=== PATIENT | male | born 1955 | race Caucasian/White ===

== ENCOUNTER 2023-12-20 05:01 | Inpatient (IN) | payer MEDICARE, OTHER, SELFPAY ==
[2023-12-10 08:44] VITALS: BMI 26.7
[2023-12-10 09:36] LABS: Urine Albumin Negative (Neg - Trace); Urine Bilirubin Negative (Negative); Urine Character Clear (Clear); Urine Color Yellow; Urine Glucose Negative (Negative); Urine Ketone Negative (Negative); Urine Leukocyte Negative (Negative); Urine Nitrite Negative (Negative); Urine Occult Blood Negative (Negative); Urine Specific Gravity 1.015 (<1.030); Urine Urobilinogen Negative (Neg - 1+)
[2023-12-10 09:38] LABS: INR 1.03; PT 13.7 Sec (11.4-14.6)
[2023-12-10 09:39] LABS: APTT 29.1 Sec (23.4-35.0)
[2023-12-10 09:40] LABS: % Basophils 1.2 % (0-2); % Eosinophils 2.7 % (0-6); % Immature Granulocytes 0.3 % (0-0.5); % Lymphocytes 19.7 % (20.5-51.1); % Monocytes 9.1 % (1.7-9.3); Absolute Basophils 0.1 10^3/uL (0-0.2); Absolute Eosinophils 0.2 10^3/uL (0-0.7); Absolute Lymphocytes 1.3 10^3/uL (1.2-3.4); Absolute Monocytes 0.6 10^3/uL (0.1-0.6); Absolute Neutrophils 4.5 10^3/uL (1.4-6.5); Hematocrit 42.4 % (39.0-52.0); Hemoglobin 14.7 g/dL (13.0-18.0); Mean Corp Hgb Conc. 34.7 g/dL (33.0-37.0); Mean Corpuscular Hgb 31.4 pg (27.0-31.0); Mean Corpuscular Volume 90.6 fL (80.0-94.0); Mean Platelet Volume 10.4 fL (7.4-10.4); Nucleated Red Blood Cells % 0 % (-); Platelet Count 187 10^3/uL (130-400); Red Blood Cell Count 4.68 10^6/uL (4.70-6.10); Red Cell Dist. Width 12.6 % (11.5-14.5); White Blood Cell Count 6.7 10^3/uL (4.8-10.8)
[2023-12-10 09:55] LABS: ALT (SGPT) 28 U/L (0-50); AST (SGOT) 29 U/L (17-59); Albumin 4.4 g/dl (3.5-5.0); Alkaline Phosphatase 70 U/L (38-126); Blood Urea Nitrogen 15 mg/dl (9-20); Calcium 9.4 mg/dl (8.4-10.2); Carbon Dioxide 29 mmol/L (22-30); Chloride 105 mmol/L (98-107); Direct Bilirubin 0.5 mg/dl (0.0-0.4); Estimated Creatinine Clearance 93 ml/min; Glucose 120 mg/dl (70-99); Potassium 4.2 mmol/L (3.5-5.1); Sodium 138 mmol/L (135-145); Total Bilirubin 0.8 mg/dl (0.2-1.3); Total Protein 7.1 g/dl (6.3-8.2); eGFR > 60.00
[2023-12-10 11:14] LABS: Glycohemoglobin (HgbA1c) 5.7 % (4.0-5.6)
--- NOTE | 2023-12-10 11:36 | CM ---
spoke to pt in PAT's we discussed preop AVR/CABG surgery including sternal and driving instructions. he is prev indep, lives with his in an in-law suite onthe first floor with 2 steps to enter. he lives in [place] now but when visiting
he stays with his son. all of his MD's remain here in the area. he denies any dme's. he is agreeable to a f/u visit from the CT RN after dc. cm role explained and all questions answered. plan is for AVR/CABG on 12/20/23, cm to follow.
[2023-12-19 23:15] VITALS: BMI 26.7
[2023-12-20] VITALS (17 sets, daily range): BP systolic 94–154; BP diastolic 51–70; BMI 26.7; BMI 25.6
[2023-12-20] MEDS: BACTROBAN 2% OINTMENT 1 APPLIC NASAL ×2 (05:22→20:21)
[2023-12-20] MEDS: PROTONIX 40 MG PO (05:23)
[2023-12-20] MEDS: MAGNESIUM OXIDE 500 MG PO (05:23)
[2023-12-20] MEDS: LOPRESSOR 25 MG PO (05:23)
--- NOTE | 2023-12-20 05:36 | PTCARENOTE ---
received pt into room 2265. pt confirmed 2 showers at home. pt clipped and prepped for CABG/AVR. wiped w/ CHG wipes. pre-op education provided. pre-op meds given. all questions answered.
--- NOTE | 2023-12-20 05:55 | W.CVOR.SURPR ---
CVOR Surgeon Immed Pre Op
-
I have examined this patient prior to performance of the scheduled procedure.
The patient's condition is unchanged from the time of the dictated/written History and
Physical and the patient is able to undergo the scheduled procedure.
CABG + AVR (Biological)
[2023-12-20 07:52] LABS: ACT+ - POC 87 Seconds (82-134)
[2023-12-20 07:57] LABS: B.E. - POC -3.9 mmol/L; Glucose - POC 123 mg/dl (65-99); HCO3 - POC 21 mmol/L (21-29); Hematocrit - POC 36 % PCV (42-52); Hemodilution- POC No; Hemoglobin Calculated - POC 12.1; O2 Saturation %Calculated-POC 99.8 5 (92-96); PCO2 - POC 38 mmHg (35-45); PO2 - POC 232 mmHg (80-100); Potassium - POC 3.9 mmol/L (3.6-5.0); Sodium - POC 142 mmol/L (135-145); pH - POC 7.35 (7.35-7.45)
[2023-12-20 08:01] LABS: Urine Albumin Negative (Neg - Trace); Urine Bilirubin Negative (Negative); Urine Character Clear (Clear); Urine Color Yellow; Urine Glucose Negative (Negative); Urine Ketone Negative (Negative); Urine Leukocyte Negative (Negative); Urine Nitrite Negative (Negative); Urine Occult Blood Negative (Negative); Urine Urobilinogen Negative (Neg - 1+)
[2023-12-20 09:37] LABS: Glucose - POC 163 mg/dl (65-99); HCO3 - POC 25 mmol/L (21-29); Hematocrit - POC 35 % PCV (42-52); Hemodilution- POC Yes; Hemoglobin Calculated - POC 11.9; Ionized Calcium - POC 1.06 mmol/L (1.12-1.27); O2 Saturation %Calculated-POC 99.9 5 (92-96); PCO2 - POC 42 mmHg (35-45); PO2 - POC 277 mmHg (80-100); Potassium - POC 5.2 mmol/L (3.6-5.0); Sodium - POC 138 mmol/L (135-145); pH - POC 7.39 (7.35-7.45)
[2023-12-20 09:50] LABS: ACT+ - POC 923 Seconds (82-134)
[2023-12-20 10:32] LABS: Glucose - POC 200 mg/dl (65-99); HCO3 - POC 25 mmol/L (21-29); Hematocrit - POC 33 % PCV (42-52); Hemodilution- POC Yes; Hemoglobin Calculated - POC 11.3; Ionized Calcium - POC 1.13 mmol/L (1.12-1.27); O2 Saturation %Calculated-POC 99.8 5 (92-96); PCO2 - POC 48 mmHg (35-45); PO2 - POC 238 mmHg (80-100); Potassium - POC 4.5 mmol/L (3.6-5.0); Sodium - POC 139 mmol/L (135-145); pH - POC 7.31 (7.35-7.45)
[2023-12-20 10:36] LABS: ACT+ - POC 724 Seconds (82-134)
--- NOTE | 2023-12-20 10:56 | CM ---
Addendum entered by CULLEN Jacobson 12/20/23 10:59:
Correction to below. Pt. is undergoing AVR/ CABG
Original Note:
Patient in OR today for planned TAVR.
Reviewed initial assessment. Pt. resides in a 2 story home w/ spouse. Functionally, patient is indep. at baseline w/ ADLS, mobility.
Anticipated DC plan is for home with CT Transitional Care RN.
CM to follow.
[2023-12-20 11:03] LABS: B.E. - POC -1.3 mmol/L; Glucose - POC 183 mg/dl (65-99); HCO3 - POC 24 mmol/L (21-29); Hematocrit - POC 32 % PCV (42-52); Hemodilution- POC Yes; Ionized Calcium - POC 1.12 mmol/L (1.12-1.27); O2 Saturation %Calculated-POC 99.8 5 (92-96); PCO2 - POC 39 mmHg (35-45); PO2 - POC 234 mmHg (80-100); Potassium - POC 4.8 mmol/L (3.6-5.0); Sodium - POC 141 mmol/L (135-145); pH - POC 7.39 (7.35-7.45)
[2023-12-20 11:06] LABS: ACT+ - POC 546 Seconds (82-134)
[2023-12-20 11:22] LABS: ACT+ - POC 98 Seconds (82-134)
[2023-12-20 11:26] LABS: B.E. - POC -3.5 mmol/L; Glucose - POC 148 mg/dl (65-99); HCO3 - POC 22 mmol/L (21-29); Hematocrit - POC 29 % PCV (42-52); Hemodilution- POC Yes; Hemoglobin Calculated - POC 9.8; Ionized Calcium - POC 1.34 mmol/L (1.12-1.27); O2 Saturation %Calculated-POC 99.9 5 (92-96); PCO2 - POC 37 mmHg (35-45); PO2 - POC 341 mmHg (80-100); Sodium - POC 142 mmol/L (135-145); pH - POC 7.37 (7.35-7.45)
[2023-12-20] MEDS: NOVOLOG FLEXPEN SC ×2 (12:09→16:18)
[2023-12-20] MEDS: NEURONTIN PO (12:09)
[2023-12-20] MEDS: TYLENOL PO (12:09)
--- NOTE | 2023-12-20 12:10 | W.PN.CT.SURG ---
CT Surgery Operative Note
-
CARDIAC SURGERY OPERATIVE REPORT
Preoperative Diagnosis: Aortic valve stenosis, bicuspid with multivessel coronary artery disease involving the LAD
Postoperative Diagnosis: Same
Procedure(s) Performed:
1. Sternotomy with standard aortic and right atrial cannulation
2. Surgical aortic valve replacement (25mm Medtronic Avalus Biological Valve)
3. Coronary artery bypass grafting x 3 (In situ CARDENAS to LAD, Ao to RSVG to OM2, Ao to RSVG to RPDA)
4. Placement of temporary ventricular pacing wire
5. Trans-esophageal echocardiography
Date of Surgery: 12/20/23
Comorbidities:
1. Bicuspid aortic valve with severe aortic valve stenosis
2. Multivessel coronary artery disease
3. Hypertension
4. Hyperlipidemia
5. History of bladder cancer
5. Arthritis
6. Family history of coronary artery disease
Attending Surgeon: Juliocesar Lam MD, MS
Assistants: Lady George PA-C (present and necessary to cutting table operator first, endoscopic vein harvest, retraction, suction, exposure, suture management, and wound closure under my direction)
Anesthesiology: Minh Hennessy MD and Billy Card CRNA
Scrub and Circulating RNs: Nadiya Ford RN, Suzie Swain RN
Pull Through Hooker: Radha Vyas CCP
Anesthesia: GETA
EBL: per perfusion records
Products: None
CPB Time: 120 minutes
Aortic Cross Clamp Time: 101 minutes
Indication(s) for Procedures: This is a 68-year-old male with known severe aortic valve stenosis who underwent left heart cath and is found to have multivessel coronary disease involving the proximal LAD and left main. He is also experiencing more
symptoms in that class I indication for both aortic valve replacement and coronary bypass grafting.
Aortic Valve Description: Bicuspid aortic valve, type I with left right fusion, on echocardiogram it appeared almost a true type 0 bicuspid coronary ostia were in their normal anatomic positions. Heavily calcified valve although the annulus was
relatively free of calcium.
Conduit(s) Quality:
CARDENAS - Excellent / Great Flow
RSVG - good / Some varicosities and changes in size of the vein diameter
Target(s) Quality:
RCA/PDA - good/excellent flow antegrade test dosing, at least 80 cc/min of flow at a pressure of 80 mmHg
OM - excellent/excellent flow with test dose of antegrade, at least 80 cc/min of flow at a pressure of 80 mmHg
LAD -excellent although heavily calcified/soft spot with identified, there is excellent visual flow into the distal LAD as well as retrograde to the diagonal vessel
Findings: LVEF on intraoperative DHAVAL was 60% and 60% post procedure without inotropic support. There was no prosthetic PVL or AI. Mean gradient across the prosthesis was 11 mmHg. The CARDENAS was harvested in a skeletonized fashion. The aortic valve
was resected in the usual fashion and a total of 17 nonpledgeted 2 Ethibond sutures were used to create the valve into place with core knots. The left and right coronary ostia were visualized to be free of any obstruction. There was [id number]
PVL that disappeared following protamine administration. Following bypass grafting, test dose cardioplegia was given down each distal and confirmed patency and hemostasis. There were no new regional wall motion abnormalities. The patient was in
sinus bradycardic rhythm not requiring any significant inotropic support at conclusion of the case.
Specimen(s): Aortic Valve Leaflets and Calcium.
Prosthesis: 25mm Medtronic Avalus Bioprosthetic Valve, serial number: [id number].
Description of Procedure: The patient was taken to the operating room. Their identity and procedure to be performed were verified and they were positioned supine on the operating table. Induction via general anesthesia with endotracheal intubation
was performed and central venous access and arterial monitoring were inserted. A preoperative transesophageal echocardiogram was performed. The patient was then prepped and draped from chin to feet in a sterile fashion. A preoperative time-out was
performed with all members of the team present. A midline chest incision was performed along with median sternotomy. Simultaneous endoscopic access of the right lower extremity for saphenous vein harvest was obtained along with administration of an
initial 5,000 units of IV heparin. A RulTract sternal retractor was positioned to exposure the left internal mammary bed. The mammary was harvested in a skeletonized fashion and found to have good flow. A bulldog clamp was applied to the distal end
of the mammary after dividing it. It was wrapped in a papaverine soaked RayTec and replaced back into the left hemithorax. The RulTract was exchanged for a median sternal retractor. The innominate vein was isolated. Full heparinization was given (a
total of 50,000 units). I created a pericardial well. The aortic cannulation site was chosen where it was soft, pliable, and free of calcium. Cannulation was performed with an arterial cannula in the ascending aorta and a triple-stage venous cannula
through the right atrial appendage. The arterial cannula line had an appropriate bounce and correlating pressures with test dosing. Next, a root vent/antegrade cannula was inserted into the ascending aorta. The ACT was confirmed to be over 400 and
retrograde autologous priming was performed before commencing cardiopulmonary bypass. The pulmonary artery was away from the aorta to facilitate a clamp site. The aortic cross-clamp was placed after decreasing the flow on the bypass and
mean arterial pressure. A total of 1.2L initial dose of antegrade Del-Nido cardioplegia solution was given and planned for re-dosing every 75 minutes as necessary. There was rapid electro-mechanical arrest of the heart at 400 cc of cardioplegia. The
left ventricle was observed for distention on echocardiogram and manual palpation. Cold slush was placed into a sponge and topically on the RV while we systemically cooled to 34 degrees centigrade.
I started by flood in the field with carbon dioxide and making a oblique aortotomy approximately 1.5 cm above the sinotubular junction. The location of both left and right coronary vessels were visualized in the root. The aortic valve was inspected
and found to be heavily calcified. The leaflets were excised and sent for pathological assessment. The annulus was debrided of any calcium. The root and left ventricular outflow tract were thoroughly irrigated to remove any debris. I then positioned
the heart to expose the distal right coronary at the posterior descending artery. A [place] blade was used to expose the coronary and perform the arteriotomy. Coronary Ahston scissors were used to enlarge the incision. The saphenous vein was trimmed
and beveled to an appropriate size. The distal anastomosis was performed using 7-0 prolene in an end-to-side fashion. Antegrade cardioplegia was administered into the graft. Appropriate hemostasis and flow were confirmed. The graft was measured for
length to the aorta and cut. A suitable site on the second branch of the obtuse marginal was chosen. We dissected and prepared the distal target in a similar fashion. An end-to-side anastomosis was created with a 7-0 prolene. Antegrade cardioplegia
was administered into the graft. Appropriate hemostasis and flow were confirmed. The graft was measured for length to the aorta and cut. A suitable target on the mid left anterior descending was identified. We dissected and prepared the distal
target in a similar fashion. We retrieved the CARDENAS from the chest and created a pericardial opening while being cognizant of the phrenic nerve to facilitate the course of the mammary. The distal end of the mammary was prepped and beveled to size. We
verified orientation and length of the BRINDA and found brisk flow. An end-to-side anastomosis was created with a 7-0 prolene. We temporarily released the bulldog clamp on the mammary to inspect flow. Perfusion to the LAD territory was visualized and
hemostasis was confirmed. The bull clamp was replaced on the mammary.
I then re-positioned to expose the root. A total of 17, non pledgeted 2-0 ethibond annular sutures were placed [id number] circumferentially. These were brought through the sewing cuff of the prosthetic valve which as then parachuted into place.
The left and right coronary ostia were visualized and were unobstructed by the valve. A Cor-Knot device was used to secure the annular sutures. The valve was inspected and was well seated. The aortotomy was approximated with 4-0 prolene in two
layers. The heart was filled and the root was distended with antegrade cardioplegia to make final assessment of graft length and orientation. I created 2 aortotomies using a #11 blade then a 4.0mm aortic punch above the aortic suture line. The
proximal anastomoses were created in an end-to-side fashion using 6-0 prolene. At the same time, we started to re-warm to 36.5 degrees centigrade. The bulldog clamp was removed from the mammary and temporary bipolar ventricular pacing wires were
placed on the base of the right ventricle. The patient was placed in a Trendelenburg position and flows on bypass were lowered. The aortic cross clamp was removed and flows were slowly brought back up. The aortotomy appeared hemostatic. A 30-gauge
needle was used to de-air the vein grafts. All bypass grafts were inspected and were free from kinking or twisting. The distal and proximal anastomoses appeared hemostatic. De-airing maneuvers were performed. Transesophageal echocardiography
revealed no paravalvular leak and appropriate prosthetic function. Once de-airing was satisfactory, the left ventricular and root vents were removed. After verifying acceptable parameters, we initiated weaning from cardiopulmonary bypass. Once we
were off cardiopulmonary bypass, the venous cannulas was clamped and removed. A test dose of protamine was administered and the patient was monitored for any adverse reaction before resuming protamine. Once half of the protamine dose was delivered,
pump suckers were turned off and the systolic blood pressure was lowered for aortic decannulation. The aortic cannula was removed and pursestrings were tied down. All cannulation sites were oversewn with a 4-0 prolene. Two repair stitches using
pledgeted 4-0 Prolene were placed on the aortic suture line. The aortic line, proximal, and distal coronary anastomoses were hemostatic. The mammary bed was inspected and hemostasis was confirmed. Once the mediastinum was hemostatic, a 19Fr Oliverio
drain was placed in the left pleural cavity and two 24Fr Oliverio drains were placed within the pericardium. The sternum was approximated with 4 #7 single and 3 #8 stainless steel wires. Fascia was approximated with #1 vicryl suture. The subcutaneous,
dermis and epidermis were closed in layers in a running fashion. The skin wound was cleansed and dressed.
All instrument, sponge, and needle counts were confirmed to be correct x 2 at the end of the operation. The patient was transferred to the cardiac intensive care unit in critical but stable condition.
I, Dr. Juliocesar Lam, was present, scrubbed for, and performed all critical elements of this procedure.
Juliocesar Lam MD, MS
Cardiothoracic Surgeon
[facility]
This operative dictation was created using the [employer] dictation system. Please excuse any grammatical, typographical, or 'sound alike' errors
--- NOTE | 2023-12-20 12:15 | PTCARENOTE ---
Pt received from CVOR at 1215. Pt intubated and sedated on precedex gtt. Unresponsive. PERRLA 2mm sluggish. Intubated with 8.0 ETT 24cm at the lip. SIMV 60% 12 550 5/5, POX 98%. Lungs coarse throughout. Small amount of blood tinged secretions
orally, scant clear secretions via ETT. Mediastinal chest tubes x2 y-sited to 1 atrium to -20cm suction draining red fluid. Left pleural chest tube to -20cm suction draining red fluid. No air leaks, tidaling, crepitus noted. SR with RBBB on tele
with rates in the 60s. BP supported with levophed. CI 1.6 PAPs 20s/10s CVP 7. 250 albumin administered, CT STUMMEL SELECTOR aware. Heart tones audible. Bilateral radial and DP pulses palpable. Epicardial v-wire intact, sensitivities and thresholds completed set
to 30/3/6, no pacing noted. Abdomen soft, round, nontender. Hypoactive BS. Wyman catheter intact draining adequate amounts of clear yellow urine. Sternal incision approximated and closed with skin glue. Chest tube sites CDI. Right groin puncture
site approximated and closed with skin glue. Right knee incision approximated and closed with skin glue, JOSE DANIEL CDI. Right IJ cordis intact with swan floated to 47cm. Left radial porfirio intact with appropriate waveform. All lines flushed, leveled, and
zeroed. Right AC 18g PIV intact. See MAR for medication administration. See worklist for complete nursing assessment. Post op labs, ekg, and cxr obtained.
Gtts:
Levo @2mcg/min
Precedex @0.5mcg/kg/hr
NSS KVO
Insulin gtt per critical care glycemic protocol.
--- NOTE | 2023-12-20 12:22 | CON.INTV ---
Consultation
Consultation Request
Date/Time Consultation Requested: 12-20-23
Date/Time Consultation Performed: 12-20-23
Requesting Provider: Dr Lam
Performing Provider: Dr Lou
Reason for Consultation: s/p CABG-AVR MV
Medical History
-
Chief Complaint: s/p CABG-AVR MV
History of Present Illness:
Mr Navarro Joyce is a 68/M adm 12-20 for scheduled CABG-AVR by Dr Lam.
Seen at office 12-06 for known and CAD, candidate for surgical intervention
S/p CABGx3 and AVR (biological valve) 12-20 with no issues
Seen at CVICU, sedated, on MV, comfortable
Past Medical History
Past Medical History: Other (see A&P for PMH/PSH)
Social History
Tobacco: Former Smoker
Alcohol: Occasional
Personal:
Living: With Family
Employment: Retired
Family History
Family History: CAD (F: CABG age 68) and Other (B: AFib)
Allergies / Home Medications
Allergies
Allergy/AdvReac Type Severity Reaction Status Date / Time
sulfamethoxazole Allergy high fever Verified 12/07/23 11:35
[From Bactrim]
trimethoprim [From Bactrim] Allergy high fever Verified 12/07/23 11:35
Home Medications
Medication Instructions Recorded Confirmed Last Taken Type
amlodipine 10 mg tablet 10 mg PO QPM Blood Pressure 11/27/23 12/20/23 12/17/23 20:00 History
aspirin 81 mg tablet,delayed 81 mg PO DAILY Blood Clot 11/27/23 12/20/23 12/19/23 20:00 History
release Prevention/Tx
cholecalciferol (vitamin D3) 50 50 mcg PO DAILY Supplement 11/27/23 12/20/23 12/19/23 10:00 History
mcg (2,000 unit) tablet (Vitamin
D3)
ezetimibe 10 mg tablet 10 mg PO QPM High Cholesterol 11/27/23 12/20/23 12/19/23 20:00 History
magnesium 200 mg tablet 400 mg PO DAILY Supplement 11/27/23 12/20/23 12/19/23 10:00 History
nitroglycerin 0.4 mg sublingual 0.4 mg sublingual [id number] PRN 11/27/23 12/20/23 Unknown Rx
tablet chest pain #25 tabs
rosuvastatin 40 mg tablet 40 mg PO QPM High Cholesterol 11/27/23 12/20/23 12/19/23 20:00 History
vitamin B12 2,500 mcg-folic acid 1 tab PO DAILY Supplement 11/27/23 12/20/23 12/19/23 10:00 History
400 mcg disintegrating tablet
vitamin K2 100 mcg capsule 100 mcg PO DAILY Supplement 11/27/23 12/20/23 12/17/23 10:00 History
Review of Systems
-
Unable to Obtain full review of systems at this time due to: Patient Intubation
Vitals / Labs / Diagnostic Testing
Vital Signs
Temp Pulse Resp BP Pulse Ox
99 F 63 16 154/66 97
12/20/23 05:16 12/20/23 05:23 12/20/23 05:16 12/20/23 05:23 12/20/23 05:16
Diagnostic Testing:
Physical Exam
-
HEENT: Normocephalic and Moist Mucous Membranes
Cardiovascular: Regular Rhythm, Murmur (n) and Peripheral Edema (n)
Respiratory: Clear and Non-Labored Respirations
GI: Soft and Non Distended
Neurology: Other (sedated)
Skin: Dry
General: Respiratory Distress (n)
Assessment
-
Assessment:
Mr Navarro Joyce is a 68/M adm 12-20 for scheduled CABG-AVR by Dr Lam. Seen at office 12-06 for known and CAD, candidate for surgical intervention
Impression:
S/p CABGx3 and AVR (biological valve) 12-20
Conditions SCREEN AND CYCLONE REPAIRER:
Chest CT s/c 12-11-23: mild to moderate subpleural pulmonary fibrotic changes
HTN
HLD
CAD
Arthritis
Bladder cancer: polyps removed 2007 and 2010
Former smoker
Plan:
Ventilator settings reviewed
SIMV: 50-140-01-5-5-0.4 (POx 99%)
FiO2 will be weaned
Minute ventilation will be adjusted
Arterial blood gases will be monitored
Spontaneous breathing trial will be attempted with hopeful extubation after anesthesia/sedation wear off
Pulmonary artery catheter parameters will be followed
Pressors/antihypertensive/inotropes/diuretics will be provided as needed
Monitor chest tube output
Monitor hemoglobin
Monitor platelet count and coags
Transfuse blood product if needed
CT surgery following chest tubes
Monitor blood sugar
Insulin drip per protocol
Aspiration precautions
VAP prevention protocol
DVT prophylaxis
Early nutrition
Early mobilization
Chest CT s/c 12-11-23: mild to moderate subpleural pulmonary fibrotic changes
No previous films for comparison
No PFTs
Will d/w patient once off MV, will need pulm evaluation as outpatient
Critical care time: 35 min
Diagnostic tests:
CXR 12-20-23: portable, mild pulm vasc congestion. [place] [facility] [place]. Chest/med ch tubes
Chest CT s/c 12-11-23: no comparison films
IMPRESSION:
I1). There is extensive vascular calcification including coronary artery calcification and aortic valvular calcification indicating atherosclerosis
2).There is moderate subpleural interstitial airspace disease in both lungs consistent with interstitial scarring and associated with mild bronchiectasis at the lung bases
[2023-12-20 12:25] LABS: Glucose - Point of Care 154 mg/dl (70-99)
[2023-12-20] MEDS: ALBUMIN 5% 250 IV ×4 (12:30→16:25)
--- NOTE | 2023-12-20 12:33 | W.PN.UPDATE ---
Update Note
Progress Note Update
Crystalloid:� 2000
U.O.:� 400
UF:� 2000
Blood:� None
Wires:� V-Wires
Inotropes:� None
Pressors:� Levophed 2
Sedatives:� Precedex
�
NEURO: sedated on precedex, pupils +2mm B/L
RESP: #8OT @23cm> 12/550/60/5. Lungs clear B/L. 2 mediastinal (55cc on arrival) and R/L pleural (X15cc on arrival) chest tubes to -20cm suction. Sanguineous drainage
CV: RRR +S1, S2, no S3, no�rub, no murmur. Dermabond to median sternotomy. RIJ w/[place] locked @ 47cm. PA 33/13; CVP 9; C.O 5.0/CI 3.7
ABD: round, soft, no BS
EXT: no edema, +2/4 DP pulses B/L, no femoral bruit, RLE JOSE DANIEL wrap intact; Left radial A-line intact
: Wyman with clear yellow urine
1
A/P: POD #0 s/p AVR #25 avalus valve and CABG x3
DHAVAL: EF�NML
- wean precedex and ventilator to extubate
- Will start ASA 81mg post-op if no bleeding
- Will given albumin for goal CVP 8-10
- Monitor UOP
- Wean levophed to MAPs >65
- DC [place] bianka in AM if CI>2
- will need instruction regarding antibiotic prophylaxis for dental and invasive procedures
�
# acute surgical blood loss anemia-expected
- trend CBC
�
# Hyperglycemia (expected) (A1C 5.6)
- insulin infusion x 24h
- Start clear liquid diet when ableliterally walked away and they said he had chest pain
�
# Hyperlipidemia
- resume�Crestor 40mg
[2023-12-20 12:35] LABS: B.E. -2.2 mmol/L; HCO3 23.2 mmol/L (21-28); Ionized Calcium 1.27 mMOL/L (1.15-1.33); PCO2 41 mmHg (35-48); PO2 154 mmHg (83-108); Potassium 4.2 mMOL/L (3.5-5.1); Sodium 138 mMOL/L (136-145); pH 7.36 (7.35-7.45)
[2023-12-20 12:36] LABS: Hematocrit 31.2 % (39.0-52.0); Hemoglobin 11.3 g/dL (13.0-18.0); Platelet Count 135 10^3/uL (130-400)
[2023-12-20 12:48] LABS: INR 1.42; PT 17.5 Sec (11.4-14.6)
[2023-12-20 12:49] LABS: APTT 32.9 Sec (23.4-35.0)
[2023-12-20] MEDS: ZINACEF 1500 MG IV ×2 (12:49)
[2023-12-20] MEDS: STERILE WATER FOR INJECTION 16 ML IV ×2 (12:49)
[2023-12-20] MEDS: PEPCID 20 MG IV ×2 (12:50→20:00)
[2023-12-20] MEDS: NSS (PRESERVATIVE FREE) 8 ML IV ×2 (12:50→20:00)
[2023-12-20] MEDS: NSS 500 IV (12:50)
[2023-12-20] MEDS: LIDOCAINE 4% PATCH 1 PATCH TOPICAL (12:50)
[2023-12-20 12:51] LABS: Blood Urea Nitrogen 14 mg/dl (9-20); Estimated Creatinine Clearance 96 ml/min; Glucose 154 mg/dl (70-99); Magnesium 3.3 mg/dl (1.6-2.3)
[2023-12-20 13:16] LABS: Glucose - Point of Care 146 mg/dl (70-99)
--- NOTE | 2023-12-20 13:35 | PTCARENOTE ---
250ml albumin administered for hypotension and hypovolemia. CI 1.82. CT CUSTODIAN MANAGER notified.
--- NOTE | 2023-12-20 13:39 | W.PN.CD ---
Today's Communication / Plan
-
Routine post operative management.
Wean vent as tolerated.
Extubate when appropriate.
Wean pressors as able.
Chest tube management per CT surgery.
Impression / Plan
-
Impression/Plan: 68 y/o male with HTN, HLD, severe aortic valve stenosis and multivessel CAD admitted for elective CABG + AVR.
#Severe
-Chronic.
-S/P #25 Medtronic Avalus bioprosthetic AVR.
-Routine post operative management.
-Wean ventilator and extubate when appropriate.
-Wean pressors.
-Chest tube management per CT surgery.
#Multivessel CAD
-Chronic.
-S/P 3V CABG (CARDENAS to LAD, SVG to OM2, SVG to RPDA).
-Post operative management as above.
-Continue rosuvastatin 40 mg daily.
#HLD
-Chronic, stable.
-Goal LDL < 70, ideally < 55. Goal Triglycerides < 150.
-Continue rosuvastatin and ezetimibe.
#HTN
-Chronic.
-Hold BP meds while on pressors.
-Consider metoprolol or carvedilol for BP control (rather than amlodipine), though bradycardia may prohibit beta krish use.
#PPx
-SCD's for DVT/VTE.
-No role for PPI at this time.
#Dispo
-CVICU status.
-Full code.
Subjective/Interval History:
CABG + AVR this morning.
Intubated/sedated.
DATA:
Intraprocedural DHAVAL, 12/20/2023:
CONCLUSIONS
�Normal biventricular size, wall thickness and systolic function.� No regional
�wall motion abnormailites are seen. The LVEF is 60% by visual inspection.�
�Calcified bicuspid valve with a large noncoronary cusp and a fused left/right
�cusp.� Severe aortic stenosis.� Mild aortic regurgitation.� Mild mitral
�regurgitation.� Mild tricuspid regurgitation.� Grade III atheromatous disease
�is seen throughout the aortic arch and descending thoracic aorta.� A very small
�qmbk-su-bslds patent foramen ovale is seen.
POST OPERATIVE FINDINGS
�S/P AVR with size 25 bioprosthetic; CABG x 3:� CARDENAS-LAD; SVG-OM; SVG-PDA
�
�The bioprosthetic valve is well-seated and opens normally.� No paravalvular
�leak is seen.� The mean gradient is 11 mmHg with a cardiac index of 1.8.�
�Otherwise unchanged exam.
Cardiac Catheterization, 11/27/2023:
CORONARY ANGIOGRAPHY
Dominance: Right
Left Main: 10-20% distal stenosis
LAD: Severe calcification of the proximal and mid LAD.� There is a 50% mid LAD stenosis and otherwise trivial luminal irregularities
Circumflex: There is a medium sized ramus without significant disease.� There is 30% proximal to mid circumflex stenosis just past the takeoff of a tiny OM1.� The circumflex terminates distal to a large bifurcating OM 2 which has a focal 50-60%
lesion in the much larger daughter branch
RCA: Large dominant severely calcified vessel.� There is 30% mid RCA stenosis.� There is focal 80% distal RCA stenosis past the crux and proximal to the takeoff of a large RPDA and larger RPL
Physical Exam
Vital Signs/Labs
Vital Signs
Temp Pulse Resp BP Pulse Ox
35.7 C L 62 12 105/53 98
12/20/23 13:00 12/20/23 13:00 12/20/23 13:00 12/20/23 13:00 12/20/23 13:00
12/19/23 12/20/23 12/21/23
11:59 11:59 11:59
Actual Weight 85.7 kg
12/20/23 12:23
PT 17.5 Sec (11.4-14.6) H 12/20/23 12:23
INR 1.42 12/20/23 12:23
APTT 32.9 Sec (23.4-35.0) 12/20/23 12:23
Magnesium 3.3 mg/dl (1.6-2.3) H 12/20/23 12:23
Physical Exam
Constitutional: No acute distress and Comfortable
EENT: Anicteric, Moist mucous membranes and Other (ET tube in place.)
Cardiovascular: Rhythm & rate is regular, Pedal edema is absent, S1S2 is normal and Murmur/rub/gallop absent
Respiratory: Respiratory effort normal, Lungs clear to auscul., Wheeze Absent, Crackles Absent and Rhonchi Absent
GI: Soft, Distention absent, Flat, Non tender and Normal bowel sounds
Neuro/Psych: Other (Intubated, sedated.)
Data Reviewed
-
Date of Service: December 20, 2023
Medical Decision Making: Reviewed Test Results and Test Interpretation
EKG: Tracing Personally Visualized and interpreted and Report Reviewed by me
Echo: Report Reviewed by me
X-Ray/CT/US/MRI/NUC/PET: Image Personally Visualized and interpreted and Report Reviewed by me
Medical Tests (PFT, Pathology etc): Report Reviewed by me
Labs: Labs Reviewed by me
Old Records: Reviewed
[2023-12-20 14:05] LABS: Glucose - Point of Care 146 mg/dl (70-99)
--- NOTE | 2023-12-20 14:05 | PTCARENOTE ---
Pt awakens to voice and follows commands to wiggle toes, squeeze hands, and shake head yes/no appropriately. RT at bedside to place pt on cpap trial. POX 98%. pt tolerating.
--- NOTE | 2023-12-20 14:45 | PTCARENOTE ---
Pt bathed with CHG wipes. Turned from side to side with no significant dumps from chest tubes. Pt tolerated.
[2023-12-20 14:55] LABS: B.E. -1.5 mmol/L; HCO3 23.7 mmol/L (21-28); Ionized Calcium 1.19 mMOL/L (1.15-1.33); O2 Saturation % 98.7 % (94-98); PCO2 41 mmHg (35-48); PO2 146 mmHg (83-108); Potassium 3.8 mMOL/L (3.5-5.1); pH 7.37 (7.35-7.45)
[2023-12-20 14:59] LABS: Glucose - Point of Care 129 mg/dl (70-99)
[2023-12-20] MEDS: KCL 50 IV ×2 (15:08→16:14)
--- NOTE | 2023-12-20 15:10 | PTCARENOTE ---
Pt extubated to 6L NC at 1510. POX 99%. Pt tolerated. Able to state his name and . IS 750.
[2023-12-20 15:44] LABS: ACT+ - POC > 1003 Seconds (82-134)
--- NOTE | 2023-12-20 16:00 | PTCARENOTE ---
Pt reassessed. Drowsy but oriented x4. GONZALEZ with equal strength throughout. SR with RBBB with rates in the 60s. BP supported with levophed. CI 2.4. PA pressures 20s/10s. CVP 8. POX 99% on 4L NC. CT output WNL. Tolerating sips and chips. Denies
nausea. Wyman draining adequate amounts clear yellow urine. All lines remain intact. Surgical sites stable. Pt's at bedside.
[2023-12-20] MEDS: LOW STRENGTH ASPIRIN 81 MG PO (16:14)
[2023-12-20] MEDS: TYLENOL 650 MG PO ×2 (16:14→19:59)
[2023-12-20] MEDS: PACERONE 200 MG PO ×2 (16:14→21:16)
[2023-12-20 16:15] LABS: Glucose - Point of Care 133 mg/dl (70-99)
[2023-12-20] MEDS: NEURONTIN 100 MG PO ×2 (16:15→21:16)
[2023-12-20 16:17] LABS: Hematocrit 28.6 % (39.0-52.0); Hemoglobin 10.3 g/dL (13.0-18.0); Platelet Count 151 10^3/uL (130-400)
[2023-12-20 17:04] LABS: Glucose - Point of Care 129 mg/dl (70-99)
[2023-12-20] MEDS: ROXICODONE 5 MG PO (17:06)
[2023-12-20] MEDS: ZETIA 10 MG PO (17:06)
[2023-12-20] MEDS: CRESTOR 40 MG PO (17:06)
[2023-12-20 19:07] LABS: Glucose - Point of Care 132 mg/dl (70-99)
[2023-12-20] MEDS: SENOKOT-S 1 TABLET PO (19:59)
[2023-12-20] MEDS: MORPHINE SULFATE 2 MG IV (19:59)
[2023-12-20] MEDS: STERILE WATER FOR INJECTION 8.30000000000000071 ML IV (20:00)
[2023-12-20] MEDS: ZINACEF 750 MG IV (20:00)
--- NOTE | 2023-12-20 20:00 | PTCARENOTE ---
assumed care of pt from previous RN. pt A&Ox4. c/o pain, see MAR. R IJ cordis w/ swan floated to 47. L radial a-line. all lines leveled and zeroed. insulin gtt infusing per protocol. temp epicardial v-wire w/ back-up settings 30/3. SR w/ RBBB on
tele-monitor. HR 60s. CTx3 (L pleural, mediastinal x2), draining sanguineous drainage. no air leaks noted. POX 97% on 2 L NC. orantes catheter draining clear, yellow urine. all surgical sites CDI. PIV intact. see worklist for complete nursing
assessment, interventions, VS, and I&Os.
[2023-12-20] MEDS: LOPRESSOR PO (20:22)
[2023-12-20] MEDS: SKELAXIN 800 MG PO (21:16)
[2023-12-20 21:17] LABS: Glucose - Point of Care 125 mg/dl (70-99)
[2023-12-20 22:27] LABS: Glucose - Point of Care 113 mg/dl (70-99)
[2023-12-20] MEDS: ROXICODONE 10 MG PO (22:38)
[2023-12-20 23:24] LABS: Glucose - Point of Care 117 mg/dl (70-99)
[2023-12-20] MEDS: DILAUDID 0.25 MG IV (23:25)
[2023-12-21] VITALS (38 sets, daily range): BP systolic 93–144; BP diastolic 49–77; PULSE 63; O2SAT 97; BMI 26.2
--- NOTE | 2023-12-21 00:15 | PTCARENOTE ---
assessment remains unchanged. SR on tele monitor, HR 60s. POX 99% on 2 L NC. pain management, see JAN. CT drainage and U/O WNL.
[2023-12-21 00:17] LABS: Glucose - Point of Care 114 mg/dl (70-99)
[2023-12-21 01:11] LABS: Glucose - Point of Care 118 mg/dl (70-99)
[2023-12-21] MEDS: TYLENOL PO ×4 (02:14→23:57)
[2023-12-21] MEDS: OFIRMEV 100 IV (02:14)
[2023-12-21 02:20] LABS: Glucose - Point of Care 125 mg/dl (70-99)
[2023-12-21 03:29] LABS: Hematocrit 26.3 % (39.0-52.0); Hemoglobin 9.4 g/dL (13.0-18.0); Mean Corp Hgb Conc. 35.7 g/dL (33.0-37.0); Mean Corpuscular Hgb 32.1 pg (27.0-31.0); Mean Corpuscular Volume 89.8 fL (80.0-94.0); Mean Platelet Volume 10.2 fL (7.4-10.4); Platelet Count 115 10^3/uL (130-400); Red Blood Cell Count 2.93 10^6/uL (4.70-6.10); Red Cell Dist. Width 13.1 % (11.5-14.5); White Blood Cell Count 13.6 10^3/uL (4.8-10.8)
[2023-12-21 03:41] LABS: Glucose - Point of Care 114 mg/dl (70-99)
--- NOTE | 2023-12-21 04:00 | PTCARENOTE ---
assessment remains unchanged. NSR on tele-monitor. AM labs collected. EKG performed. CT drainage and U/O WNL.
[2023-12-21 05:10] LABS: Blood Urea Nitrogen 25 mg/dl (9-20); Calcium 8.9 mg/dl (8.4-10.2); Carbon Dioxide 22 mmol/L (22-30); Chloride 109 mmol/L (98-107); Estimated Creatinine Clearance 85 ml/min; Glucose 120 mg/dl (70-99); Magnesium 2.7 mg/dl (1.6-2.3); Potassium 4.4 mmol/L (3.5-5.1); Sodium 141 mmol/L (135-145); eGFR > 60.00
[2023-12-21] MEDS: ROXICODONE 10 MG PO ×2 (05:11→10:11)
[2023-12-21] MEDS: STERILE WATER FOR INJECTION 8.30000000000000071 ML IV ×2 (05:11→11:34)
[2023-12-21] MEDS: ZINACEF 750 MG IV ×2 (05:11→11:34)
[2023-12-21] MEDS: NOVOLIN R INSULIN INFUSION 100 IV (05:26)
--- NOTE | 2023-12-21 05:40 | W.PN.CT ---
Today's Communication / Plan
-
-pod #1
-no issues overnight
-CI 2.33, CO 4.85. Drips: insulin, Cardene 5.
-CT output: L pleur 50/190, 2 meds 130/350 in 12/24 hrs
-deline
-d/c insulin
-d/c Wyman
-meds (ASA, BB, Amio, Crestor, Zetia). Consider Plavix
-encourage IS, OOB
Assessment / Plan
-
- bicuspid AV with severe /mv-CAD - s/p AVR (25mm Medtronic Avalus Biological Valve) with CABG x3 (In situ CARDENAS to LAD, Ao to RSVG to OM2, Ao to RSVG to RPDA) on 12/20/[address] Lam, pod #1
- LVEF on intraoperative DHAVAL was 60% and 60% post procedure without inotropic support. There was no prosthetic PVL or AI. Mean gradient across the prosthesis was 11 mmHg.
- Hypertension
- Hyperlipidemia
- Carotid bruit (UMBERTO 50-69% stenosis)
- History of bladder cancer, s/p bladder polyp removal
- Dental implants
- Arthritis
- Tobacco use
- Family history of coronary artery disease
- Acute postop blood loss anemia - no active bleed, no transfusion
- Acute postop thrombocytopenia
- Acute postop atelectasis
- Acute postop hypovolemia with subsequent hypervolemia
Discussed patient care with: Nursing and Care Team
Subjective
Procedure
- s/p AVR (25mm Medtronic Avalus Biological Valve) with CABG x3 (In situ CARDENAS to LAD, Ao to RSVG to OM2, Ao to RSVG to RPDA) on 12/20/[address] Lam
-
Date of Service: December 20, 2023
Objective Data
-
Lab Results
12/20/23 16:12
12/20/23 12:23
PT 17.5 Sec (11.4-14.6) H 12/20/23 12:23
INR 1.42 12/20/23 12:23
APTT 32.9 Sec (23.4-35.0) 12/20/23 12:23
Vital Signs
Vital Signs
Temp Pulse Resp BP Pulse Ox
98.1 F 63 17 109/65 97
12/20/23 22:00 12/20/23 22:15 12/20/23 22:15 12/20/23 22:00 12/20/23 22:15
CT Intake/Output/Weight
12/20/23 12/20/23 12/21/23
06:59 18:59 06:59
Intake Total 1543.0 / 1669.5 126.5 / 1669.5
Output Total 760 / 1060 300 / 1060
Balance 783.0 / 609.5 -173.5 / 609.5
SaO2: 97
Physical Exam
-
General: Awake and AOx3
Cardiovascular: Regular rate & rhythm, No Murmurs and Rub
Respiratory: Decreased Breath Sounds
Sternum: Stable
Incision: Clean, Dry and Dressing Intact
Extremities: Other (trace edema b/l, 2+ DP b/l)
Data Reviewed
-
Lab Results: Results Reviewed
Medications: Active Meds Reviewed
Chest X-Ray: Report Reviewed and Image Reviewed
ECG: Report Reviewed and Image Reviewed
[2023-12-21 06:06] LABS: Glucose - Point of Care 127 mg/dl (70-99)
[2023-12-21] MEDS: ZOFRAN 4 MG IV (06:19)
[2023-12-21] MEDS: CARDENE 200 IV (06:53)
[2023-12-21 07:00] LABS: Glucose - Point of Care 131 mg/dl (70-99)
--- NOTE | 2023-12-21 07:26 | W.PN.INTV ---
Today's Communication / Plan
Recommendations
IS
O2 protocol as needed
Dedicated outpatient pulm evaluation for pulm fibrosis in 3-4 wks post d/c at [facility]
Assessment
-
Assessment:
Mr Navarro Joyce is a 68/M adm 12-20 for scheduled CABG-AVR by Dr Lam. Seen at office 12-06 for known and CAD, candidate for surgical intervention
Impression:
S/p CABGx3 and AVR (biological valve) 12-20
[employer]:
Chest CT s/c 12-11-23: mild to moderate subpleural pulmonary fibrotic changes
Mild chronic cough
PND
HTN
HLD
CAD
Arthritis
Bladder cancer: polyps removed 2007 and 2010
Former smoker
Plan:
Extubated post surgery with no issues
Currently on O2 2L, POx 96% at rest
Pressors/antihypertensive/inotropes/diuretics will be provided as needed
Monitor chest tube output
Monitor hemoglobin
Monitor platelet count and coags
Transfuse blood product if needed
CT surgery following chest tubes
Monitor blood sugar
Insulin drip per protocol
Chest CT s/c 12-11-23: mild to moderate subpleural pulmonary fibrotic changes
No previous films for comparison
No PFTs
Discussed chest CT findings of pulm fibrotic changes
Reports a 1 y h/o mild intermittent cough productive of clear sputum. Seen by ENT as PND seemed to play a role in his cough. Not yet seen by Pulm as outpatient
Retired, reports occupational exposure to chemicals in a variety of jobs but could not provide further details
Former smoker: 1 ppd for 20y, quit 1989
Not on BDs or home O2
Will need pulm evaluation as outpatient in 1 m p d/c, offered to follow at [facility]
Of note, Mr Joyce currently lives most of the time in [place], in [place] he lives with his son. He agreed to follow with [facility] for further investigation of ILD, information left at chart
DVT prophylaxis
Early nutrition
Early mobilization
Diagnostic tests:
CXR 12-20-23: portable, mild pulm vasc congestion. ET. [facility]. Sternotomy. Chest/med ch tubes
CXR 12-21-23: interim extubation, mild basilar atelectatic changes. [facility]. Sternotomy, chest/med tubes
Chest CT s/c 12-11-23: no comparison films
IMPRESSION:
I1). There is extensive vascular calcification including coronary artery calcification and aortic valvular calcification indicating atherosclerosis
2).There is moderate subpleural interstitial airspace disease in both lungs consistent with interstitial scarring and associated with mild bronchiectasis at the lung bases
Subjective Dataa
Subjective Data
Date of Service:
Date of Service: December 21, 2023
Chief Complaint: [employer] Follow Up
Subjective:
Extubated post surgery
Sitting in chair, in NAD
Discussed chest CT findings of pulm fibrotic changes
Reports a 1 y h/o mild intermittent cough productive of clear sputum. Seen by ENT as PND seemed to play a role in his cough. Not yet seen by Pulm as outpatient
Retired, reports occupational exposure to chemicals in a variety of jobs but could not provide further details
Former smoker: 1 ppd for 20y, quit 1989
Not on BDs or home O2
Review of Systems
General: Fever (n), Sweats (n), Chills (n) and Satisfactory Appetite (n)
HEENT: Epistaxis (n) and Dysphagia (n)
Cardiopulmonary: Dyspnea (n), Cough, Sputum Production, Wheezing (n), Chest Pain (incisional), Edema (n) and Hemoptysis (n)
GI: Abdominal Pain (n), Nausea (n) and Vomiting
Neuro: Weakness
Objective Data
Data Reviewed
Vital Signs / I&O / Oxygen:
Vital Signs
Temp Pulse Resp BP Pulse Ox
97.5 F 66 16 119/62 98
12/21/23 06:00 12/21/23 06:45 12/21/23 07:00 12/21/23 06:07 12/21/23 07:00
Intake and Output
12/20/23 12/21/23 12/22/23
06:59 06:59 06:59
Intake Total 2095.0 / 2136.0 41 / 41
Output Total 1470 / 1515 45 / 45
Balance 625.0 / 621.0 -4 / -4
SaO2 [CPAP/PSV] 98
SaO2 [SIMV] 97
SaO2 98
Nasal Cannula flow liters per 2
minute
Physical Exam
General: Comfortable
HEENT: Normocephalic and Moist Mucous Membranes
Cardiovascular: Regular Rhythm, Peripheral Edema (n) and Calf Tenderness (n)
Respiratory: Wheeze (n), Crackles (few basilar), Rhonchi (trace), Stridor (n) and Chest Tube
GI: Soft, Non Distended and Non Tender
Neurology: Awake, AO x 3 and No Motor Deficits
Skin: Dry
Labs/Micro/Reports
Lab Data
12/21/23 03:13
12/21/23 03:13
Laboratory Results
12/20/23 12/20/23
12:23 14:43
PT 17.5 H
INR 1.42
APTT 32.9
pH 7.36 7.37
pCO2 41 41
pO2 154 H 146 H
HCO3 23.2 23.7
O2 Delivery Level
--- NOTE | 2023-12-21 08:03 | W.PN.ANS.POP ---
Anesthesia Post Operative
- Anesthesia Post Op Note
Vital Signs Stable-See Nursing Note: Yes
Airway Patent: Yes
Adequate Pain Control: Yes
Change in Mental Status: No
Current Postoperative Nausea & Vomiting: No
Anesthesia Complications: No
General Anesthetic Recall: No
Unplanned Admission: No
Post Op Hydration Adequate: Yes
--- NOTE | 2023-12-21 08:09 | W.PN.CD ---
Today's Communication / Plan
-
continue typical post op care
Impression / Plan
-
Impression/Plan: 68 y/o male with HTN, HLD, severe aortic valve stenosis and multivessel CAD admitted for elective CABG + AVR.
#Severe
-Chronic.
-S/P #25 Medtronic Avalus bioprosthetic AVR.
-Routine post operative management.
-Chest tube management per CT surgery.
#Multivessel CAD
-Chronic.
-S/P 3V CABG (CARDENAS to LAD, SVG to OM2, SVG to RPDA).
-looking good post operatively.
-Continue rosuvastatin 40 mg daily.
#HLD
-Chronic, stable.
-Goal LDL < 70, ideally < 55. Goal Triglycerides < 150.
-Continue rosuvastatin and ezetimibe.
#HTN
-Chronic.
-Consider metoprolol or carvedilol for BP control (rather than amlodipine), though bradycardia may prohibit beta krish use.
#Dispo
-CVICU status.
-Full code.
Subjective/Interval History:
he is feeling well, some cp with deep breaths at incision. N/v this am.
DATA:
Intraprocedural DHAVAL, 12/20/2023:
CONCLUSIONS
�Normal biventricular size, wall thickness and systolic function.� No regional
�wall motion abnormailites are seen. The LVEF is 60% by visual inspection.�
�Calcified bicuspid valve with a large noncoronary cusp and a fused left/right
�cusp.� Severe aortic stenosis.� Mild aortic regurgitation.� Mild mitral
�regurgitation.� Mild tricuspid regurgitation.� Grade III atheromatous disease
�is seen throughout the aortic arch and descending thoracic aorta.� A very small
�wmla-dd-neols patent foramen ovale is seen.
POST OPERATIVE FINDINGS
�S/P AVR with size 25 bioprosthetic; CABG x 3:� CARDENAS-LAD; SVG-OM; SVG-PDA
�
�The bioprosthetic valve is well-seated and opens normally.� No paravalvular
�leak is seen.� The mean gradient is 11 mmHg with a cardiac index of 1.8.�
�Otherwise unchanged exam.
Cardiac Catheterization, 11/27/2023:
CORONARY ANGIOGRAPHY
Dominance: Right
Left Main: 10-20% distal stenosis
LAD: Severe calcification of the proximal and mid LAD.� There is a 50% mid LAD stenosis and otherwise trivial luminal irregularities
Circumflex: There is a medium sized ramus without significant disease.� There is 30% proximal to mid circumflex stenosis just past the takeoff of a tiny OM1.� The circumflex terminates distal to a large bifurcating OM 2 which has a focal 50-60%
lesion in the much larger daughter branch
RCA: Large dominant severely calcified vessel.� There is 30% mid RCA stenosis.� There is focal 80% distal RCA stenosis past the crux and proximal to the takeoff of a large RPDA and larger RPL
Physical Exam
Vital Signs/Labs
Vital Signs
Temp Pulse Resp BP Pulse Ox
97.5 F 66 16 119/62 98
12/21/23 06:00 12/21/23 06:45 12/21/23 07:00 12/21/23 06:07 12/21/23 07:00
12/20/23 12/21/23 12/22/23
06:59 06:59 06:59
Actual Weight 85.7 kg 87.7 kg
12/21/23 03:13
12/21/23 03:13
PT 17.5 Sec (11.4-14.6) H 12/20/23 12:23
INR 1.42 12/20/23 12:23
APTT 32.9 Sec (23.4-35.0) 12/20/23 12:23
Magnesium 2.7 mg/dl (1.6-2.3) H 12/21/23 03:13
Physical Exam
Constitutional: No acute distress
Cardiovascular: Rhythm & rate is regular, Pedal edema is absent, JVD pressure is normal, Systolic murmur absent and Diastolic murmur absent
Respiratory: Respiratory effort normal, Lungs clear to auscul., Wheeze Absent, Crackles Absent and Rhonchi Absent
GI: Soft and Normal bowel sounds
Neuro/Psych: AO x 3
Data Reviewed
-
Date of Service: December 21, 2023
EKG: Other (tele sinus)
--- NOTE | 2023-12-21 08:15 | PTCARENOTE ---
Resumed care of patient. Walking rounds completed with previous RN. Pt assessed while he was sitting in the chair. Pt alert and oriented x4. Pt states his incision is 'sore'-see MAR. Pt c/o nausea and vomited x1 clear emesis. GONZALEZ with equal strength
in all extremities. NSR on tele with rates in the 60s. BP stable off cardene 109/50. Bilateral radial and DP pulses palpable. No edema noted. +Rub. POX 98% on 2L NC, titrated to RA, POX 96%. Lungs diminished in the bases. Mediastinal chest tubes x2
y-sited to 1 atrium to -20cm suction draining serosanguineous drainage. Left pleural chest tube to -20cm suction draining serosanguinous fluid. No air leaks, tidaling, crepitus noted. IS encouraged. Abdomen soft, round, nontender. Hypoactive BS. Pt
denies gas at this time. Wyman draining adequate amounts of clear yellow urine. Sternal incision approximated with skin glue. Right groin puncture site approximated with skin glue. Right knee incision approximated with skin glue, JOSE DANIEL-CDI. Right IJ
cordis intact infusing NSS KVO. Right AC 18g PIV infusing insulin gtt per critical care glycemic protocol. See MAR for medication administration. See worklist for complete nursing assessment. Plan of care reviewed and patient in agreement.
[2023-12-21 08:19] LABS: Glucose - Point of Care 110 mg/dl (70-99)
[2023-12-21] MEDS: LIDOCAINE 4% PATCH 1 PATCH TOPICAL (08:26)
[2023-12-21] MEDS: FLUSH (NSS) 1 FLUSH IV (08:26)
[2023-12-21] MEDS: VITAMIN B-12 2500 MCG PO (08:27)
[2023-12-21] MEDS: SENOKOT-S 1 TABLET PO ×2 (08:27→19:55)
[2023-12-21] MEDS: TYLENOL 650 MG PO ×4 (08:27→19:55)
[2023-12-21] MEDS: LOPRESSOR 12.5 MG PO ×2 (08:27→21:20)
[2023-12-21] MEDS: LOW STRENGTH ASPIRIN 81 MG PO (08:27)
[2023-12-21] MEDS: MAGNESIUM OXIDE 500 MG PO ×2 (08:27→19:55)
[2023-12-21] MEDS: PACERONE 200 MG PO ×2 (08:27→16:06)
[2023-12-21] MEDS: NEURONTIN 100 MG PO ×3 (08:27→21:19)
[2023-12-21] MEDS: BACTROBAN 2% OINTMENT 1 APPLIC NASAL ×2 (08:28→19:59)
[2023-12-21] MEDS: SKELAXIN 800 MG PO (08:28)
[2023-12-21] MEDS: VITAMIN D3 (cholecalciferol) 50 MCG PO (08:28)
[2023-12-21] MEDS: LASIX IV (08:58)
[2023-12-21] MEDS: KCL PO (08:58)
[2023-12-21] MEDS: NOVOLOG FLEXPEN SC (08:58)
--- NOTE | 2023-12-21 09:30 | PTCARENOTE ---
Left radial porfirio d/c per orders, hemostasis achieved. Wyman d/c per orders. Pt tolerated.
[2023-12-21 09:33] LABS: Glucose - Point of Care 110 mg/dl (70-99)
[2023-12-21] MEDS: NSS IV (10:04)
[2023-12-21] MEDS: PLAVIX 75 MG PO (10:10)
[2023-12-21] MEDS: FOLVITE 0.400000000000000022 MG PO (10:10)
[2023-12-21 11:18] LABS: Glucose - Point of Care 106 mg/dl (70-99)
--- NOTE | 2023-12-21 11:30 | PTCARENOTE ---
Pt reassessed. VSS. NSR with rates in the 60s. BP stable 144/70. Epicardial v-wire insulated. POX 96% on RA. Surgical sites stable. Chest tube dressing changed and output WNL. Right IJ cordis and PIV intact.
--- NOTE | 2023-12-21 12:36 | CM ---
CM following for DC planning needs.
Met w/ patient at bedside. Patient feels well POD#1 from AVR/CABG.
Reviewed DC plans for home w/ CT Transitional Care RN. Patient aware/agreeable.
CM to remain available for DC planning needs.
[2023-12-21 13:14] LABS: Glucose - Point of Care 116 mg/dl (70-99)
[2023-12-21] MEDS: NOVOLOG FLEXPEN 4 UNITS SC ×2 (13:35→17:56)
--- NOTE | 2023-12-21 15:00 | PTCARENOTE ---
Pt reassessed. SB-SR on tele with rates in the high 50s low 60s. BP stable 114/60. POX 96% on RA. Surgical sites stable. CT output WNL. Cordis and PIV intact. Pt remains on insulin gtt-see worklist.
[2023-12-21 15:05] LABS: Glucose - Point of Care 74 mg/dl (70-99)
[2023-12-21 16:05] LABS: Glucose - Point of Care 114 mg/dl (70-99)
[2023-12-21] MEDS: PROTONIX 40 MG PO (16:06)
[2023-12-21 17:06] LABS: Glucose - Point of Care 110 mg/dl (70-99)
[2023-12-21] MEDS: ZETIA 10 MG PO (17:56)
[2023-12-21] MEDS: CRESTOR 40 MG PO (17:56)
[2023-12-21 17:57] LABS: Glucose - Point of Care 98 mg/dl (70-99)
[2023-12-21 19:05] LABS: Glucose - Point of Care 143 mg/dl (70-99)
--- NOTE | 2023-12-21 20:40 | PTCARENOTE ---
Assumed care of patient at 1900. Patient found OOB in chair at time of assessment. Patient is AOx4, follows commands appropriately, moves all extremities. Lung sounds are clear and equal throughout, patient is on RA saO2 97%, patient has CTx3:
Mediastinalx2 and L pleural with red sanguineous drainage. Heart sounds have a regular rate and rhythm, there is a rub present on auscultation, no edema is noted, patient has normal palpable pulses. Hypoactive BS throughout all four quadrants.
Patient is voiding clear yellow in the urinal. There is a sternal incision approx with surg adhesive MOOK, an ABD dressing over CT wounds that is CDI, a R groin puncture that is approximated with surg adhesive MOOK, RLE incision approx with surg
adhesive MOOK. Patient has a R IJ cordis receiving KVO and R AC 18G where insulin gtt is running continuously. VSS. Patient has no complaints at this time.
[2023-12-21 21:12] LABS: Glucose - Point of Care 111 mg/dl (70-99)
[2023-12-21] MEDS: FLEXERIL 5 MG PO (21:19)
[2023-12-21 23:04] LABS: Glucose - Point of Care 81 mg/dl (70-99)
[2023-12-22] VITALS (38 sets, daily range): BP systolic 88–136; BP diastolic 51–97; BMI 26.4
--- NOTE | 2023-12-22 00:45 | PTCARENOTE ---
Patient reassessed. VSS. Remains NSR on the monitor. Patient's glucose well controlled on column 3 insulin gtt. Patient reports no pain or N/V. Patient is stable.
[2023-12-22 01:11] LABS: Glucose - Point of Care 101 mg/dl (70-99)
[2023-12-22 03:21] LABS: Glucose - Point of Care 107 mg/dl (70-99)
[2023-12-22 03:34] LABS: Hematocrit 25.5 % (39.0-52.0); Hemoglobin 8.8 g/dL (13.0-18.0); Mean Corp Hgb Conc. 34.5 g/dL (33.0-37.0); Mean Corpuscular Hgb 32.4 pg (27.0-31.0); Mean Corpuscular Volume 93.8 fL (80.0-94.0); Mean Platelet Volume 10.7 fL (7.4-10.4); Platelet Count 100 10^3/uL (130-400); Red Blood Cell Count 2.72 10^6/uL (4.70-6.10); Red Cell Dist. Width 13.6 % (11.5-14.5); White Blood Cell Count 14.5 10^3/uL (4.8-10.8)
[2023-12-22 03:57] LABS: Blood Urea Nitrogen 32 mg/dl (9-20); Calcium 8.7 mg/dl (8.4-10.2); Carbon Dioxide 29 mmol/L (22-30); Chloride 105 mmol/L (98-107); Estimated Creatinine Clearance 96 ml/min; Glucose 95 mg/dl (70-99); Magnesium 2.5 mg/dl (1.6-2.3); Potassium 4.6 mmol/L (3.5-5.1); Sodium 135 mmol/L (135-145); eGFR > 60.00
--- NOTE | 2023-12-22 04:16 | W.PN.CT ---
Today's Communication / Plan
-
Plan:
-No major issues overnight. Hemodynamically and neurologically intact
-Off all drips but insulin, should be able to d/c today. Diabetes education/management following
-BP soft and HR emely in 50's last despite hold on night dose Amiodarone, will switch metoprolol tartrate to 12.5 mg QD metoprolol succinate. Amiodarone decreased to 200 mg BID
-Cont. current meds (ASA, Plavix, Zetia, Lasix, Amiodarone-decreased to BID given postop bradycardia, Lopressor switched to Toprol XL)
-Consider d/c of chest tubes: L pleural , 2 meds
-Maintain cordis another day
-Encourage use of IS
-OOB into chair/Ambulate
-Maintain temporary v-wires, will cut before d/c home
Assessment / Plan
-
Assessment:
- bicuspid AV with severe /mv-CAD - s/p AVR (25mm Medtronic Avalus Biological Valve) with CABG x3 (In situ CARDENAS to LAD, Ao to RSVG to OM2, Ao to RSVG to RPDA) on 12/20/[address] Lam, pod #2
- LVEF on intraoperative DHAVAL was 60% and 60% post procedure without inotropic support. There was no prosthetic PVL or AI. Mean gradient across the prosthesis was 11 mmHg.
- Hypertension
- Hyperlipidemia
- Carotid bruit (UMBERTO 50-69% stenosis)
- History of bladder cancer, s/p bladder polyp removal
- Dental implants
- Arthritis
- Tobacco use
- Family history of coronary artery disease
- Acute postop blood loss anemia - no active bleed, no transfusion
- Acute postop thrombocytopenia (stable without active bleed)
- Acute postop atelectasis/pleural effusion
- Acute postop hypovolemia with subsequent hypervolemia
Discussed patient care with: Cardiology, Nursing, Respiratory Therapy, Pharmacy and Care Team
Subjective
Procedure
AVR (25mm Medtronic Avalus Biological Valve) with CABG x3 (In situ CARDENAS to LAD, Ao to RSVG to OM2, Ao to RSVG to RPDA) on 12/20/[address] Lam
-
Date of Service: December 22, 2023
Pt c/o pleuritic chest pain, otherwise feels well
Objective Data
-
Lab Results
12/22/23 03:25
12/22/23 03:25
PT 17.5 Sec (11.4-14.6) H 12/20/23 12:23
INR 1.42 12/20/23 12:23
APTT 32.9 Sec (23.4-35.0) 12/20/23 12:23
Vital Signs
Vital Signs
Temp Pulse Resp BP Pulse Ox
97.8 F 61 18 107/51 94
12/21/23 23:00 12/22/23 03:18 12/22/23 03:18 12/22/23 03:18 12/22/23 03:18
CT Intake/Output/Weight
12/21/23 12/21/23 12/22/23
06:59 18:59 06:59
Intake Total 563.8 / 2147.8 698.2 / 818.0 119.8 / 818.0
Output Total 720 / 1525 630 / 690 60 / 690
Balance -156.2 / 622.8 68.2 / 128.0 59.8 / 128.0
SaO2: 94 (RA)
Physical Exam
-
General: Awake, Oriented and AOx3
Cardiovascular: Regular rate & rhythm, No Murmurs, Rub (likely friction rub from chest tubes) and No Gallop
Respiratory: Decreased Breath Sounds
Sternum: Stable
Incision: Clean, Dry, Intact and Dressing Intact
Extremities: No Edema
Data Reviewed
-
Lab Results: Results Reviewed
Medications: Active Meds Reviewed
Chest X-Ray: Report Reviewed and Image Reviewed
ECG: Report Reviewed and Image Reviewed
[2023-12-22 05:15] LABS: Glucose - Point of Care 94 mg/dl (70-99)
--- NOTE | 2023-12-22 05:15 | PTCARENOTE ---
Patient reassessed. VSS. AM labs obtained. Hygiene care provided. No complaints at this time. Assisted patient OOB to chair. Gave patient prn tylenol for 3/10 chest pain. Patient is stable.
[2023-12-22] MEDS: TYLENOL PO ×3 (05:47→15:49)
[2023-12-22] MEDS: TYLENOL 650 MG PO ×3 (05:48→19:52)
[2023-12-22] MEDS: ROXICODONE 5 MG PO (07:14)
[2023-12-22 07:15] LABS: Glucose - Point of Care 117 mg/dl (70-99)
--- NOTE | 2023-12-22 08:00 | PTCARENOTE ---
Received patient from prior shift. Pt assessment completed, see documentation in medical record. Pt education initiated about ISB use, cough and deep breathing with the heart pillow, mobility, nutrition, pain management, sternal precautions and rest
periods. Pt asked to demonstrate ISB, and patient education completed to correct technique. Pt demonstrated understanding of education using the teach back method. Proper technique with the incentive spirometer will be reinforced, and patient
instructed to use the ISB ten times per hour (minimum). Medication education including medication side effects provided for all 0800 medications prior to administering AM medications. Pt sitting in the chair and resting comfortably. Medication
education will be reinforced throughout the day. IV site flushed and patent.
--- NOTE | 2023-12-22 08:14 | W.PN.CD ---
Today's Communication / Plan
-
-Remains clinically stable status-post #25 Medtronic Avalus bioprosthetic AVR.
-Remains in sinus rhythm; no events on telemetry.
-Continue routine post operative management as directed by CT Surgery.
Impression / Plan
-
Impression/Plan: 68 y/o male with HTN, HLD, severe aortic valve stenosis and multivessel CAD admitted for elective CABG + AVR.
#Severe
-Remains clinically stable status-post #25 Medtronic Avalus bioprosthetic AVR.
-Remains in sinus rhythm; no events on telemetry.
-Continue routine post operative management as directed by CT Surgery.
#Multivessel CAD
-Stable status-post 3V CABG (CARDENAS to LAD, SVG to OM2, SVG to RPDA).
-Continue aspirin, rosuvastatin, and metoprolol succinate.
#HLD
-Chronic, stable.
-Goal LDL < 70, ideally < 55. Goal Triglycerides < 150.
-Continue rosuvastatin and ezetimibe.
#HTN
-Well-controlled on current medication regimen.
Subjective/Interval History:
he is feeling well, some cp with deep breaths at incision. N/v this am.
DATA:
Intraprocedural DHAVAL, 12/20/2023:
CONCLUSIONS
�Normal biventricular size, wall thickness and systolic function.� No regional
�wall motion abnormailites are seen. The LVEF is 60% by visual inspection.�
�Calcified bicuspid valve with a large noncoronary cusp and a fused left/right
�cusp.� Severe aortic stenosis.� Mild aortic regurgitation.� Mild mitral
�regurgitation.� Mild tricuspid regurgitation.� Grade III atheromatous disease
�is seen throughout the aortic arch and descending thoracic aorta.� A very small
�jglv-em-haguw patent foramen ovale is seen.
POST OPERATIVE FINDINGS
�S/P AVR with size 25 bioprosthetic; CABG x 3:� CARDENAS-LAD; SVG-OM; SVG-PDA
�
�The bioprosthetic valve is well-seated and opens normally.� No paravalvular
�leak is seen.� The mean gradient is 11 mmHg with a cardiac index of 1.8.�
�Otherwise unchanged exam.
Cardiac Catheterization, 11/27/2023:
CORONARY ANGIOGRAPHY
Dominance: Right
Left Main: 10-20% distal stenosis
LAD: Severe calcification of the proximal and mid LAD.� There is a 50% mid LAD stenosis and otherwise trivial luminal irregularities
Circumflex: There is a medium sized ramus without significant disease.� There is 30% proximal to mid circumflex stenosis just past the takeoff of a tiny OM1.� The circumflex terminates distal to a large bifurcating OM 2 which has a focal 50-60%
lesion in the much larger daughter branch
RCA: Large dominant severely calcified vessel.� There is 30% mid RCA stenosis.� There is focal 80% distal RCA stenosis past the crux and proximal to the takeoff of a large RPDA and larger RPL
Physical Exam
Vital Signs/Labs
Vital Signs
Temp Pulse Resp BP Pulse Ox
97.8 F 63 20 124/97 96
12/22/23 03:00 12/22/23 06:00 12/22/23 06:00 12/22/23 06:00 12/22/23 06:00
12/21/23 12/22/23 12/23/23
06:59 06:59 06:59
Actual Weight 87.7 kg 88.3 kg
12/22/23 03:25
12/22/23 03:25
PT 17.5 Sec (11.4-14.6) H 12/20/23 12:23
INR 1.42 12/20/23 12:23
APTT 32.9 Sec (23.4-35.0) 12/20/23 12:23
Magnesium 2.5 mg/dl (1.6-2.3) H 12/22/23 03:25
Physical Exam
Constitutional: No acute distress and Comfortable
EENT: Anicteric
Cardiovascular: Rhythm & rate is regular, Systolic murmur absent, Pedal edema present (trace) and S1S2 is normal
Respiratory: Respiratory effort normal and Lungs clear to auscul.
GI: Soft
Neuro/Psych: AO x 3
Other: Skin (Warm, dry, intact)
Data Reviewed
-
Date of Service: December 22, 2023
EKG: Tracing Personally Visualized and interpreted (Telemetry: Sinus rhythm)
X-Ray/CT/US/MRI/NUC/PET: Discussed with Nurse and Discussed with Patient
Medical Tests (PFT, Pathology etc): Discussed with Nurse and Discussed with Patient
Labs: Labs Reviewed by me
Critical Care Time (in minutes): 36
[2023-12-22] MEDS: FOLVITE 0.400000000000000022 MG PO (08:32)
[2023-12-22] MEDS: TOPROL XL 12.5 MG PO ×2 (08:32→21:40)
[2023-12-22] MEDS: LOW STRENGTH ASPIRIN 81 MG PO (08:32)
[2023-12-22] MEDS: PLAVIX 75 MG PO (08:32)
[2023-12-22] MEDS: NEURONTIN 100 MG PO ×3 (08:34→21:35)
[2023-12-22] MEDS: PROTONIX 40 MG PO (08:34)
[2023-12-22] MEDS: PACERONE 200 MG PO (08:35)
[2023-12-22] MEDS: VITAMIN C 500 MG PO (08:35)
[2023-12-22] MEDS: KCL 20 MEQ PO (08:36)
[2023-12-22] MEDS: LIDOCAINE 4% PATCH 1 PATCH TOPICAL (08:36)
[2023-12-22] MEDS: SENOKOT-S 1 TABLET PO ×2 (08:36→19:52)
[2023-12-22] MEDS: VITAMIN D3 (cholecalciferol) 50 MCG PO (08:36)
--- NOTE | 2023-12-22 09:00 | PTCARENOTE ---
Late entry glycemic protocol: Glycemic protocol not documented for 0900. Blood glucose was 136mg/dl, column 3, insulin changed to 4.5
[2023-12-22 09:12] LABS: Glucose - Point of Care 136 mg/dl (70-99)
--- NOTE | 2023-12-22 09:15 | PTCARENOTE ---
Patient education completed regarding DVT prevention in the post operative period and the risk for PE and/or stroke. Pt instructed about anticoagulation treatment, frequent movement, frequent ankle pumps, and the need to increase activity during
recovery and after discharge. Fall risk prevention reinforced, and pt instructed not to get up from the chair or bed without the assistance of the nurse. Pt demonstrated an understanding of education using the teach back method. Call irwin in reach
of patient at all times.
[2023-12-22] MEDS: LOPRESSOR 2.5 MG IV (09:51)
[2023-12-22] MEDS: VITAMIN B-12 2500 MCG PO (10:00)
--- NOTE | 2023-12-22 10:00 | PTCARENOTE ---
Pt convert to afib at a controlled rate. Discussed with DARIUS Hale, amiodarone bolus and infusion ordered, IV metoprolol ordered. Vitals stable see flow sheet.
[2023-12-22] MEDS: CORDARONE 103 MG IV (10:12)
[2023-12-22] MEDS: LOPRESSOR 2 MG IV ×3 (10:52→13:40)
[2023-12-22 11:19] LABS: Glucose - Point of Care 93 mg/dl (70-99)
--- NOTE | 2023-12-22 12:00 | PTCARENOTE ---
Prior assessment unchanged. VSS.
--- NOTE | 2023-12-22 13:11 | PTCARENOTE ---
Chest tubes times three removed by DARIUS Hale. Pt tolerated well and pending cxr
[2023-12-22] MEDS: BACTROBAN 2% OINTMENT 1 APPLIC NASAL ×2 (13:19→21:35)
--- NOTE | 2023-12-22 13:22 | PTCARENOTE ---
xray completed, pt will remain on bedrest until the xray result is confirmed.
--- NOTE | 2023-12-22 13:33 | PTCARENOTE ---
Discussed with DARIUS Hale who states to give lasix now. Pt having runs of sinus rhythm but converts back to afib
[2023-12-22] MEDS: LASIX 40 MG IV (13:43)
[2023-12-22 13:51] LABS: Glucose - Point of Care 115 mg/dl (70-99)
--- NOTE | 2023-12-22 15:00 | PTCARENOTE ---
Prior assessment remains unchanged. Heart and lung sounds unchanged. Pt continues to increase activity level. Infection prevention education provided including hand hygiene, incision care at home, and signs/symptoms of infection.
[2023-12-22] MEDS: FERRLECIT 110 MG IV (15:13)
[2023-12-22] MEDS: NSS 500 IV (15:14)
[2023-12-22 15:23] LABS: Glucose - Point of Care 135 mg/dl (70-99)
[2023-12-22] MEDS: NOVOLOG FLEXPEN SC (15:50)
--- NOTE | 2023-12-22 17:25 | PTCARENOTE ---
Pt is not ordered insulin with meals. Discussed with DARIUS Hale, pt has normal AIC pre op so will not give insulin with meals.
[2023-12-22 17:47] LABS: Glucose - Point of Care 72 mg/dl (70-99)
[2023-12-22] MEDS: CRESTOR 40 MG PO (17:49)
[2023-12-22] MEDS: ZETIA 10 MG PO (17:49)
--- NOTE | 2023-12-22 18:20 | PTCARENOTE ---
Pt noted to have intermittent junctional rhythm, showed strips to PA Geoffrey, will monitor. BP stable, v wires attached to pacer preventatively.
[2023-12-22 18:40] LABS: Glucose - Point of Care 82 mg/dl (70-99)
[2023-12-22] MEDS: FLEXERIL 10 MG PO (21:35)
[2023-12-22 21:43] LABS: Glucose - Point of Care 168 mg/dl (70-99)
[2023-12-22] MEDS: NOVOLIN N vial 0.0700000000000000067 UNITS SC (22:21)
--- NOTE | 2023-12-22 22:48 | PTCARENOTE ---
Assumed care of patient at 1900. Patient found OOB in chair at time of assessment. Patient is AOx4, follows commands appropriately, moves all extremities. Lung sounds are clear and equal bilaterally, patient is on RA with saO2 97%. Heart sounds have
a regular rate and rhythm, patient is noted to be SB on the monitor HR in the 50s, no edema is noted, and patient has normal palpable pulses. There are v wires that are insulated. Patient has active BS and reports flatus, but no BM postop at this
time. Patient is voiding clear yellow urine in the bathroom. There is a sternal incision approx with surg adhesive MOOK, CT wounds with ABD dressing that is CDI, a RLE incision that is approx with surg adhesive SALVAGER HELPER, and R groin puncture approx with
surg adhesive MOOK. Patient has a R IJ cordis and 2xR AC 18G. Patient is receiving Cordis KVO and amio gtt at 0.5 for episode of afib during dayshift. VSS. Patient's insulin gtt discontinued. Assisted patient with ambulation in hallway and back to
bed. Patient is stable.
[2023-12-23] VITALS (9 sets, daily range): BP systolic 109–147; BP diastolic 55–72; BMI 26.1
--- NOTE | 2023-12-23 00:04 | PTCARENOTE ---
Patient reassessed. Remains SB on the monitor HR in the mid 50s. Will continue to monitor if HR drops further CT PA advises discontinuing amio gtt. All other vital signs stable. Patient with blood sugar 168 HS received 1xdose insulin NPH. Patient is
stable at this time.
[2023-12-23] MEDS: TYLENOL PO ×2 (00:46→05:23)
[2023-12-23 04:16] LABS: Hematocrit 24.1 % (39.0-52.0); Hemoglobin 8.3 g/dL (13.0-18.0); Mean Corp Hgb Conc. 34.4 g/dL (33.0-37.0); Mean Corpuscular Hgb 31.6 pg (27.0-31.0); Mean Corpuscular Volume 91.6 fL (80.0-94.0); Red Blood Cell Count 2.63 10^6/uL (4.70-6.10); Red Cell Dist. Width 13.2 % (11.5-14.5); White Blood Cell Count 10.4 10^3/uL (4.8-10.8)
--- NOTE | 2023-12-23 04:28 | PTCARENOTE ---
Patient reassessed. BP somewhat low this AM MAP 63 CT PA notified. AM labs obtained. Low iCa ordered additional calcium gluconate awaiting medication from pharmacy. Patient attempting to sleep in recliner reports discomfort in the bed. Ultram and
tyenol administered for neck pain somewhat effective. Patient is stable.
--- NOTE | 2023-12-23 04:31 | PTCARENOTE ---
Patient reassessed. VSS. AM labs obtained. Hygiene care provided. Assisted patient OOB to chair. Remains SB on the media monitor. Patient has no complaints at this time.
--- NOTE | 2023-12-23 04:34 | W.PN.CT ---
Today's Communication / Plan
-
Plan:
-No major issues overnight. Hemodynamically and neurologically intact
-Off insulin gtt, on Amiodarone gtt
-Had ~7hrs of A-fib with RVR yesterday, hence Amiodarone gtt, will d/c per protocol and transition to PO Amiodarone
-Rhythm is currently sinus bradycardia @ 55 bpm
-BP meds adjusted, currently tolerating Toprol XL 12.5 mg po BID. BP had been soft in previous days, now improved
-Will likely need OAC if further a-fib
-Cont. current meds (ASA, Plavix, Zetia, Lasix, Amiodarone, Lopressor switched to Toprol XL)
-D/C cordis today following completion of Amiodarone gtt
-Encourage use of IS
-OOB into chair/Ambulate
-Maintain temporary v-wires, will cut before d/c home
-Home likely tomorrow
Assessment / Plan
-
Assessment:
- bicuspid AV with severe /mv-CAD - s/p AVR (25mm Medtronic Avalus Biological Valve) with CABG x3 (In situ CARDENAS to LAD, Ao to RSVG to OM2, Ao to RSVG to RPDA) on 12/20/[address] Lam, pod #3
- LVEF on intraoperative DHAVAL was 60% and 60% post procedure without inotropic support. There was no prosthetic PVL or AI. Mean gradient across the prosthesis was 11 mmHg.
- Hypertension
- Hyperlipidemia
- Prediabetes (A1C 5.7)
- Carotid bruit (UMBERTO 50-69% stenosis)
- History of bladder cancer, s/p bladder polyp removal
- Dental implants
- Arthritis
- Tobacco use
- Family history of coronary artery disease
- Acute postop blood loss anemia - no active bleed, no transfusion
- Acute postop thrombocytopenia (stable without active bleed)
- Acute postop atelectasis/pleural effusion
- Acute postop hypovolemia with subsequent hypervolemia
- Acute postop a-fib with RVR (~7hrs duration)
- Acute postop hyponatremia, 132
Discussed patient care with: Cardiology, Nursing, Respiratory Therapy, Pharmacy and Care Team
Subjective
Procedure
AVR (25mm Medtronic Avalus Biological Valve) with CABG x3 (In situ CARDENAS to LAD, Ao to RSVG to OM2, Ao to RSVG to RPDA) on 12/20/[address] Lam
-
Date of Service: December 23, 2023
Pt c/o mild incisional pain. Pleuritic chest pain is much better following removal of chest tubes yesterday
Objective Data
-
Lab Results
12/23/23 03:48
PT 17.5 Sec (11.4-14.6) H 12/20/23 12:23
INR 1.42 12/20/23 12:23
APTT 32.9 Sec (23.4-35.0) 12/20/23 12:23
Vital Signs
Vital Signs
Temp Pulse Resp BP Pulse Ox
98.2 F 54 16 109/56 94
12/23/23 03:00 12/23/23 03:00 12/23/23 03:00 12/23/23 03:00 12/23/23 03:00
CT Intake/Output/Weight
12/22/23 12/22/23 12/23/23
06:59 18:59 06:59
Intake Total 143.5 / 841.7 1297.6 / 1297.6
Output Total 735 / 1365 191 / 1914
Balance -591.5 / -523.3 -617.4 / -617.4
SaO2: 94 (RA)
Physical Exam
-
General: Awake, Oriented and AOx3
Cardiovascular: Regular rate & rhythm, No Murmurs, No Rub and No Gallop
Respiratory: Decreased Breath Sounds (at bases, otherwise clear)
Sternum: Stable
Incision: Clean, Dry, Intact and Dressing Intact
Extremities: No Edema
Data Reviewed
-
Lab Results: Results Reviewed
Medications: Active Meds Reviewed
Chest X-Ray: Report Reviewed and Image Reviewed
ECG: Report Reviewed and Image Reviewed
[2023-12-23 04:36] LABS: Blood Urea Nitrogen 29 mg/dl (9-20); Calcium 8.3 mg/dl (8.4-10.2); Carbon Dioxide 29 mmol/L (22-30); Chloride 104 mmol/L (98-107); Estimated Creatinine Clearance 85 ml/min; Glucose 129 mg/dl (70-99); Magnesium 2.3 mg/dl (1.6-2.3); Potassium 4.3 mmol/L (3.5-5.1); Sodium 132 mmol/L (135-145); eGFR > 60.00
[2023-12-23 06:10] LABS: Mean Platelet Volume 10.8 fL (7.4-10.4); Platelet Count 86 10^3/uL (130-400)
--- NOTE | 2023-12-23 07:00 | PTCARENOTE ---
Bedside walking rounds report received. Patient seen on rounds oob in chair on room air. SB on monitor with rates in the 50's/slighly prolonged qt: amio gtt to continue till 1030am, then dc per ct surgery. Neuro intact. IS to 1500 x 10 reps. Plan:
IV lasix to continue diuresis, increase ambulation. See flowrecord for remaining assessments.
[2023-12-23 07:46] LABS: Glucose - Point of Care 114 mg/dl (70-99)
[2023-12-23] MEDS: LIDOCAINE 4% PATCH 1 PATCH TOPICAL (08:49)
[2023-12-23] MEDS: TYLENOL 650 MG PO (08:49)
[2023-12-23] MEDS: VITAMIN B-12 2500 MCG PO (08:50)
[2023-12-23] MEDS: TOPROL XL 12.5 MG PO ×2 (08:50→20:05)
[2023-12-23] MEDS: PLAVIX 75 MG PO (08:50)
[2023-12-23] MEDS: FOLVITE 0.400000000000000022 MG PO (08:52)
[2023-12-23] MEDS: LOW STRENGTH ASPIRIN 81 MG PO (08:52)
[2023-12-23] MEDS: NEURONTIN 100 MG PO ×3 (08:52→21:39)
[2023-12-23] MEDS: VITAMIN D3 (cholecalciferol) 50 MCG PO (08:52)
[2023-12-23] MEDS: PROTONIX 40 MG PO (08:52)
[2023-12-23] MEDS: SENOKOT-S 1 TABLET PO ×2 (08:52→20:05)
[2023-12-23] MEDS: VITAMIN C 500 MG PO ×2 (08:52→08:58)
[2023-12-23] MEDS: BACTROBAN 2% OINTMENT 1 APPLIC NASAL ×2 (08:53→20:05)
[2023-12-23] MEDS: KCL 20 MEQ PO (09:01)
[2023-12-23] MEDS: LASIX 40 MG IV (09:01)
--- NOTE | 2023-12-23 11:05 | W.PN.CD ---
Today's Communication / Plan
-
-Patient went into atrial fibrillation overnight for approximately 7 hours; now back in sinus rhythm.
-Being transitioned from amiodarone drip to PO amiodarone.
-Recommend NOAC, if recurrence.
-Continue other medications.
Impression / Plan
-
Impression/Plan: 68 y/o male with HTN, HLD, severe aortic valve stenosis and multivessel CAD admitted for elective CABG + AVR.
#Severe
-Clinically stable status-post #25 Medtronic Avalus bioprosthetic AVR.
-Went into paroxysmal atrial fibrillation yesterday.
-Continue post operative management as directed by CT Surgery.
#Multivessel CAD
-Stable status-post 3V CABG (CARDENAS to LAD, SVG to OM2, SVG to RPDA).
-Continue aspirin, rosuvastatin, and metoprolol succinate.
# Postoperative PAF:
-Being transitioned from amiodarone drip to PO amiodarone.
-Recommend NOAC, if recurrence.
#HLD
-Chronic, stable.
-Goal LDL < 70, ideally < 55. Goal Triglycerides < 150.
-Continue rosuvastatin and ezetimibe.
#HTN
-Well-controlled on current medication regimen.
Subjective/Interval History:
Patient went into atrial fibrillation overnight for approximately 7 hours; now back in sinus rhythm.
DATA:
Intraprocedural DHAVAL, 12/20/2023:
CONCLUSIONS
�Normal biventricular size, wall thickness and systolic function.� No regional
�wall motion abnormailites are seen. The LVEF is 60% by visual inspection.�
�Calcified bicuspid valve with a large noncoronary cusp and a fused left/right
�cusp.� Severe aortic stenosis.� Mild aortic regurgitation.� Mild mitral
�regurgitation.� Mild tricuspid regurgitation.� Grade III atheromatous disease
�is seen throughout the aortic arch and descending thoracic aorta.� A very small
�[id number] patent foramen ovale is seen.
POST OPERATIVE FINDINGS
�S/P AVR with size 25 bioprosthetic; CABG x 3:� CARDENAS-LAD; SVG-OM; SVG-PDA
�
�The bioprosthetic valve is well-seated and opens normally.� No paravalvular
�leak is seen.� The mean gradient is 11 mmHg with a cardiac index of 1.8.�
�Otherwise unchanged exam.
Cardiac Catheterization, 11/27/2023:
CORONARY ANGIOGRAPHY
Dominance: Right
Left Main: 10-20% distal stenosis
LAD: Severe calcification of the proximal and mid LAD.� There is a 50% mid LAD stenosis and otherwise trivial luminal irregularities
Circumflex: There is a medium sized ramus without significant disease.� There is 30% proximal to mid circumflex stenosis just past the takeoff of a tiny OM1.� The circumflex terminates distal to a large bifurcating OM 2 which has a focal 50-60%
lesion in the much larger daughter branch
RCA: Large dominant severely calcified vessel.� There is 30% mid RCA stenosis.� There is focal 80% distal RCA stenosis past the crux and proximal to the takeoff of a large RPDA and larger RPL
Physical Exam
Vital Signs/Labs
Vital Signs
Temp Pulse Resp BP Pulse Ox
98.4 F 56 18 121/65 99
12/23/23 07:41 12/23/23 08:45 12/23/23 07:41 12/23/23 07:41 12/23/23 07:41
12/22/23 12/23/23 12/24/23
06:59 06:59 06:59
Actual Weight 88.3 kg 87.3 kg
12/23/23 03:48
12/23/23 03:48
PT 17.5 Sec (11.4-14.6) H 12/20/23 12:23
INR 1.42 12/20/23 12:23
APTT 32.9 Sec (23.4-35.0) 02/01/24 12:23
Magnesium 2.3 mg/dl (1.6-2.3) 12/23/23 03:48
Physical Exam
Constitutional: No acute distress and Comfortable
EENT: Anicteric
Cardiovascular: Rhythm & rate is regular, Pedal edema present (Trace-1+), Systolic murmur present (1/6) and S1S2 is normal
Respiratory: Respiratory effort normal and Lungs clear to auscul.
GI: Soft
Neuro/Psych: AO x 3
Other: Skin (Warm, dry, intact)
Data Reviewed
-
Date of Service: December 23, 2023
EKG: Tracing Personally Visualized and interpreted (Telemetry: Sinus rhythm/PAF)
Medical Tests (PFT, Pathology etc): Discussed with Physician (CT Surgery team)
Labs: Labs Reviewed by me
Critical Care Time (in minutes): 35 minutes
--- NOTE | 2023-12-23 12:00 | PTCARENOTE ---
No acute changes. Vital signs stable. SB on monitor. Ambulating hallway on room air with minimal assist
[2023-12-23 12:34] LABS: Glucose - Point of Care 110 mg/dl (70-99)
[2023-12-23] MEDS: NSS IV (16:10)
[2023-12-23] MEDS: FERRLECIT 110 MG IV (16:10)
--- NOTE | 2023-12-23 17:36 | W.DCSUMMARY ---
Discharge Summary
Discharge Data
Date of Admission: 12/20/23
Date of Discharge: 12/24/23
-
Pending Results: No
Hospital Course
Primary care physician: Elizabeth Esposito
Outpatient sweatband drummer: Toi De La O
Inpatient consultants: [facility] Cardiology
Procedures:
1. Aortic valve replacement and coronary artery bypass grafting x 3
Primary Diagnosis:
1. Severe aortic stenosis
Secondary Diagnoses:
1. Multivessel coronary disease
2. Hypertension
3. Hyperlipidemia
4. Moderate right carotid stenosis (50-69%)
5. Arthritis
6. Bladder cancer status post polyp removal
7. postoperative acute surgical blood loss anemia
8. Postoperative paroxysmal atrial fibrillation
9. Prediabetes (A1c 5.7)
HPI: Mrs. Garcia is a 68-year-old male electively admitted on 12/20/2023 for AVR/CABG.
Hospital course: Patient underwent aortic valve replacement #25 mm Avalus bioprosthetic and CABG x 3 with CARDENAS to LAD, SVG to PDA, SVG to OM1 by Dr. Lam. Patient received no intraoperative blood products and returned to CVICU on Levophed,
Precedex, and insulin. On postoperative day #1 patient was started on aspirin, Plavix, and beta-krish. The patient developed paroxysmal atrial fibrillation lasting approximately 7 hours on postoperative day #2, requiring beta-krish, amiodarone
bolus, and infusion. Chest drains were removed and Lasix given. Patient transitioned off insulin infusion to sliding scale insulin. Diabetic nurse practitioners were consulted as patient had high insulin requirements and has new diagnosis of
prediabetes. Patient maintaining sinus bradycardia on postoperative day #3 and amiodarone infusion was converted to oral therapy. Cardiology recommended NOAC if A-fib recurs.
Home medication changes:
see below
Discharge Plan
-
Patient Disposition: Home (Routine Discharge)
Discharge Diagnosis/Procedures: AVR/CABG
Condition: Fair
Diet: Low Fat and Low Sodium
Activity: As tolerated
Driving Restrictions: Not until seen by your Dr
Bathing Restrictions: OK to Shower
Other Services: Cardiac Rehab
Specialty Instructions: Weigh Daily- Call MD for wt gain/loss 3 lbs overnight/5 lbs in 1 week
Stop these medications:: amlodipine
nitroglycerin
vitamin K
Activity Restrictions/Additional Instructions:
ACTIVITY:
-No strenuous activity: no heavy lifting, pushing, pulling anything over 15 pounds for one month
-continue to use stairs as tolerated
DRIVING RESTRICTIONS:
-No driving for one month or until approved by your surgeon
WOUND CARE:
-Shower daily. Use soap & water.
-No lotions, creams or powders on incision area.
DIET:
-continue a low fat/low cholesterol diet.
-IF you are diabetic, continue carb controlled diet.
CARDIAC REHAB:
-Please make appointment to start in 5-6 weeks with your local hospital program. (See Cardiac Rehabilitation Discharge Booklet).
SPECIALTY INSTRUCTIONS:
-Weigh yourself daily. Call your physician for any weight gain/loss of 3 lbs overnight or 5 lbs in one week.
-REPORT any clicking noise or uneven appearance of your sternum to your surgeon immediately.
-If you smoke, you are instructed to quit. The [place] smoking hotline phone number is [phone]
Referrals:
CT Transitional Care Nurse [Outside] (The Cardiothoracic Transitional Care Nurse will call you to set up a visit in 1-2 days.)
Erasto Esposito, [Family Provider] -
Toi De La O MD [Active] - 01/28/24 11:00 am
Lázaro Lou MD [Active] - (New patient: pulmonary fibrosis, s/p CABG. See in 3-4 wks post d/c. He mainly lives in [place] but here he lives with his son. Never seen by pulmonology, former smoker)
Juliocesar Lam MD [Active] - 01/24/24 2:00 pm
Prescriptions:
New
pantoprazole 40 mg Tablet,Delayed Release (Dr/Ec)
40 mg PO DAILY Qty: 30 0RF
Continued
aspirin 81 mg Tablet,Delayed Release (Dr/Ec)
81 mg PO DAILY
ezetimibe 10 mg Tablet
10 mg PO QPM
rosuvastatin 40 mg Tablet
40 mg PO QPM
cholecalciferol (vitamin D3) [Vitamin D3] 50 mcg (2,000 unit) Tablet
50 mcg PO DAILY
vitamin G94-epxpj acid 2,500-400 mcg Tablet,Disintegrating
1 tab PO DAILY
Discontinued
vitamin K2 100 mcg Capsule
100 mcg PO DAILY
No Action
amlodipine 10 mg Tablet
10 mg PO QPM
magnesium 200 mg Tablet
400 mg PO DAILY
nitroglycerin [nitroglycerin] 0.4 mg tablet, sublingual
0.4 mg sublingual [id number] PRN (Reason: chest pain) Qty: 25 5RF
Care Plan Goals
Care Plan Goals:
Problem: Readiness for enhanced knowledge related to diagnosis and treatment plan
Goal: Understand your diagnosis and treatment plan needs, including medications if applicable.
Instructions: Know your diagnosis, underlying causes and treatment plan options, including medications if applicable. Consult with your health care team to learn about your diagnosis and treatment plan, including medications if applicable.
--- NOTE | 2023-12-23 17:45 | PTCARENOTE ---
No acute changes: vitals stable. Assited back to bed: right IJ cordis sutures dc/cordis dc. Epicardial v wire disconnected from box and insulated. Spinbacktronic box readily accessible in room.
--- NOTE | 2023-12-23 18:00 | PTCARENOTE ---
Patient ambulated entire cvicu and IVU a total of 450 feet on room air. NSR to SB
[2023-12-23] MEDS: CRESTOR 40 MG PO (18:10)
[2023-12-23] MEDS: ZETIA 10 MG PO (18:10)
[2023-12-23 18:13] LABS: Glucose - Point of Care 120 mg/dl (70-99)
--- NOTE | 2023-12-23 20:00 | PTCARENOTE ---
assumed care of pt from previous RN. pt A&Ox4, independent in room. no c/o pain at this time. sinus emely to NSR on tele-monitor. temp epicardial v-wires in place, unplugged from pacer. palpable peripheral pulses. trace, non-pitting edema in b/l
lower legs. POX 100% on room air. lungs diminished at bases. abd s/n, +BS. -N/V. voiding in bathroom. all surgical sites stable, CDI. PIV x2 intact. see worklist for complete nursing assessment, interventions, and VS.
[2023-12-23] MEDS: PACERONE 200 MG PO (20:05)
[2023-12-23] MEDS: FLEXERIL 10 MG PO (21:39)
[2023-12-23 21:43] LABS: Glucose - Point of Care 111 mg/dl (70-99)
[2023-12-24] VITALS (9 sets, daily range): BP systolic 115–152; BP diastolic 62–108; PULSE 60; O2SAT 98–100; BMI 25.7
--- NOTE | 2023-12-24 00:11 | PTCARENOTE ---
assessment remains unchanged. no c/o pain at this time. sinus emely to NSR on tele-monitor. BP 118/68. POX 95% on RA.
--- NOTE | 2023-12-24 04:19 | PTCARENOTE ---
assessment remains unchanged. sinus emely on tele-monitor. BP 120/62. POX 95% on RA. AM labs collected and sent. no c/o pain at this time.
[2023-12-24 04:33] LABS: Hematocrit 26.1 % (39.0-52.0); Mean Corp Hgb Conc. 34.5 g/dL (33.0-37.0); Mean Corpuscular Hgb 31.9 pg (27.0-31.0); Mean Corpuscular Volume 92.6 fL (80.0-94.0); Mean Platelet Volume 10.9 fL (7.4-10.4); Platelet Count 104 10^3/uL (130-400); Red Blood Cell Count 2.82 10^6/uL (4.70-6.10); Red Cell Dist. Width 13.1 % (11.5-14.5); White Blood Cell Count 7.9 10^3/uL (4.8-10.8)
--- NOTE | 2023-12-24 04:35 | W.PN.CT ---
Today's Communication / Plan
-
Plan:
-No major issues overnight. Hemodynamically and neurologically intact
-No further a-fib since ~7hrs of A-fib with RVR on POD#2
-Rhythm is currently sinus bradycardia @ 58 bpm
-BP meds adjusted, currently tolerating Toprol XL 12.5 mg po BID, Amiodarone is @ 200 mg po BID
-Will likely need DOAC if further a-fib
-Glucose is now under control
-Cont. current meds (ASA, Plavix, Zetia, Lasix, Amiodarone, Toprol XL)
-F/U 2-view cxr
-Encourage use of IS
-OOB into chair/Ambulate
-Will cut temporary v-wires before d/c home
-Home today
Assessment / Plan
-
Assessment:
- bicuspid AV with severe /mv-CAD - s/p AVR (25mm Medtronic Avalus Biological Valve) with CABG x3 (In situ CARDENAS to LAD, Ao to RSVG to OM2, Ao to RSVG to RPDA) on 12/20/[address] Lam, pod #4
- LVEF on intraoperative DHAVAL was 60% and 60% post procedure without inotropic support. There was no prosthetic PVL or AI. Mean gradient across the prosthesis was 11 mmHg.
- Hypertension
- Hyperlipidemia
- Prediabetes (A1C 5.7)
- Carotid bruit (UMBERTO 50-69% stenosis)
- History of bladder cancer, s/p bladder polyp removal
- Dental implants
- Arthritis
- Tobacco use
- Family history of coronary artery disease
- Acute postop blood loss anemia - no active bleed, no transfusion
- Acute postop thrombocytopenia (stable without active bleed)
- Acute postop atelectasis/pleural effusion
- Acute postop hypovolemia with subsequent hypervolemia
- Acute postop a-fib with RVR (~7hrs duration)
- Acute postop hyponatremia, 132
Discussed patient care with: Cardiology, Nursing, Respiratory Therapy, Pharmacy and Care Team
Subjective
Procedure
AVR (25mm Medtronic Avalus Biological Valve) with CABG x3 (In situ CARDENAS to LAD, Ao to RSVG to OM2, Ao to RSVG to RPDA) on 12/20/[address] Lam
-
Date of Service: December 24, 2023
Pt c/o mild incisional pain, otherwise feels well
Objective Data
-
PT 17.5 Sec (11.4-14.6) H 12/20/23 12:23
INR 1.42 12/20/23 12:23
APTT 32.9 Sec (23.4-35.0) 12/20/23 12:23
Vital Signs
Vital Signs
Temp Pulse Resp BP Pulse Ox
97.8 F 61 16 120/62 95
12/24/23 04:00 12/24/23 04:04 12/24/23 04:00 12/24/23 04:04 12/24/23 04:00
CT Intake/Output/Weight
12/23/23 12/23/23 12/24/23
06:59 18:59 06:59
Intake Total 320.4 / 1618.0 1373.3 / 1373.3
Balance 320.4 / -297.0 1373.3 / 1373.3
SaO2: 95 (RA)
Physical Exam
-
General: Awake, Oriented and AOx3
Cardiovascular: Regular rate & rhythm, No Murmurs, No Rub and No Gallop
Respiratory: Decreased Breath Sounds (at bases, otherwise clear)
Sternum: Stable
Incision: Clean, Dry, Intact and Dressing Intact
Extremities: Other (+trace edema)
Data Reviewed
-
Lab Results: Results Reviewed
Medications: Active Meds Reviewed
Chest X-Ray: Report Reviewed and Image Reviewed
ECG: Report Reviewed and Image Reviewed
[2023-12-24 05:21] LABS: Blood Urea Nitrogen 21 mg/dl (9-20); Calcium 8.4 mg/dl (8.4-10.2); Carbon Dioxide 27 mmol/L (22-30); Chloride 107 mmol/L (98-107); Estimated Creatinine Clearance 96 ml/min; Glucose 107 mg/dl (70-99); Potassium 4.1 mmol/L (3.5-5.1); Sodium 136 mmol/L (135-145); eGFR > 60.00
[2023-12-24 07:15] LABS: Glucose - Point of Care 98 mg/dl (70-99)
[2023-12-24] MEDS: LOW STRENGTH ASPIRIN 81 MG PO (07:43)
[2023-12-24] MEDS: FOLVITE 0.400000000000000022 MG PO (07:43)
[2023-12-24] MEDS: NEURONTIN 100 MG PO (07:43)
[2023-12-24] MEDS: VITAMIN B-12 2500 MCG PO (07:43)
[2023-12-24] MEDS: BACTROBAN 2% OINTMENT 1 APPLIC NASAL (07:43)
[2023-12-24] MEDS: TOPROL XL 12.5 MG PO (07:43)
[2023-12-24] MEDS: VITAMIN D3 (cholecalciferol) 50 MCG PO (07:43)
[2023-12-24] MEDS: SENOKOT-S 1 TABLET PO (07:43)
[2023-12-24] MEDS: PROTONIX 40 MG PO (07:43)
[2023-12-24] MEDS: PACERONE 200 MG PO (07:43)
[2023-12-24] MEDS: VITAMIN C 500 MG PO (07:44)
[2023-12-24] MEDS: PLAVIX 75 MG PO (07:44)
[2023-12-24] MEDS: LIDOCAINE 4% PATCH 1 PATCH TOPICAL (07:44)
[2023-12-24] MEDS: LASIX IV (07:44)
[2023-12-24] MEDS: KCL PO (07:44)
[2023-12-24] MEDS: FLUSH (NSS) 1 FLUSH IV (07:44)
--- NOTE | 2023-12-24 07:45 | PTCARENOTE ---
Resumed care of patient. Pt assessed while he was sitting in the chair. Pt alert and oriented x4. Pt denies pain, shortness of breath, and nausea. GONZALEZ with equal strength in all extremities. Independent in the room. SB-NSR on tele with rates
50s-60s. BP stable 120/64. Heart tones audible. Bilateral radial and DP pulses palpable. Trace edema in b/l lower extremities. Epicardial v-wire insulated. POX 98% on RA. Lungs clear throughout. IS encouraged-2000mL achieved. Abdomen soft,
nontender. +BS. Pt reports passing gas. Denies issues urinating. Sternal incision approximated with skin glue. Right groin puncture site approximated with skin glue. Right knee site approximated with skin glue. Right AC 18g PIVx2 intact. see MAR for
medication administration. See worklist for complete nursing assessment. Plan of care reviewed and patient in agreement.
[2023-12-24] MEDS: NSS IV (08:10)
--- NOTE | 2023-12-24 08:12 | W.PN.CD ---
Today's Communication / Plan
-
continue post op care
amiodarone
Impression / Plan
-
Impression/Plan: 68 y/o male with HTN, HLD, severe aortic valve stenosis and multivessel CAD admitted for elective CABG + AVR.
#Status-post #25 Medtronic Avalus bioprosthetic AVR.
-in NSR - PAF over weekend.
-Continue post operative management as directed by CT Surgery.
#Multivessel CAD
-Stable status-post 3V CABG (CARDENAS to LAD, SVG to OM2, SVG to RPDA).
-Continue aspirin, rosuvastatin, and metoprolol succinate.
# Postoperative PAF:
-PO amiodarone
#HLD
-Continue rosuvastatin and ezetimibe.
#HTN
stable
Subjective/Interval History:
no afib overnight. No cp or sob
DATA:
Intraprocedural DHAVAL, 12/20/2023:
CONCLUSIONS
�Normal biventricular size, wall thickness and systolic function.� No regional
�wall motion abnormailites are seen. The LVEF is 60% by visual inspection.�
�Calcified bicuspid valve with a large noncoronary cusp and a fused left/right
�cusp.� Severe aortic stenosis.� Mild aortic regurgitation.� Mild mitral
�regurgitation.� Mild tricuspid regurgitation.� Grade III atheromatous disease
�is seen throughout the aortic arch and descending thoracic aorta.� A very small
�[id number] patent foramen ovale is seen.
POST OPERATIVE FINDINGS
�S/P AVR with size 25 bioprosthetic; CABG x 3:� CARDENAS-LAD; SVG-OM; SVG-PDA
�
�The bioprosthetic valve is well-seated and opens normally.� No paravalvular
�leak is seen.� The mean gradient is 11 mmHg with a cardiac index of 1.8.�
�Otherwise unchanged exam.
Cardiac Catheterization, 11/27/2023:
CORONARY ANGIOGRAPHY
Dominance: Right
Left Main: 10-20% distal stenosis
LAD: Severe calcification of the proximal and mid LAD.� There is a 50% mid LAD stenosis and otherwise trivial luminal irregularities
Circumflex: There is a medium sized ramus without significant disease.� There is 30% proximal to mid circumflex stenosis just past the takeoff of a tiny OM1.� The circumflex terminates distal to a large bifurcating OM 2 which has a focal 50-60%
lesion in the much larger daughter branch
RCA: Large dominant severely calcified vessel.� There is 30% mid RCA stenosis.� There is focal 80% distal RCA stenosis past the crux and proximal to the takeoff of a large RPDA and larger RPL
Physical Exam
Vital Signs/Labs
Vital Signs
Temp Pulse Resp BP Pulse Ox
97.7 F 76 16 120/64 98
12/24/23 07:52 12/24/23 08:00 12/24/23 07:52 12/24/23 07:52 12/24/23 07:52
12/23/23 12/24/23 12/25/23
06:59 06:59 06:59
Actual Weight 87.3 kg 85.8 kg
12/24/23 04:08
12/24/23 04:08
PT 17.5 Sec (11.4-14.6) H 12/20/23 12:23
INR 1.42 12/20/23 12:23
APTT 32.9 Sec (23.4-35.0) 12/20/23 12:23
Magnesium 2.3 mg/dl (1.6-2.3) 12/23/23 03:48
Data Reviewed
-
Date of Service: December 24, 2023
--- NOTE | 2023-12-24 08:18 | W.DCSUMMARY ---
Discharge Summary
Discharge Data
Date of Admission: 12/20/23
Date of Discharge: 12/24/23
Total time spent discharging patient (in min): 33
-
Pending Results: No
Hospital Course
Primary care physician:
Dr. Kellogg
Outpatient insurance marketing specialist:
Dr. Toi De La O
Inpatient consultants:
[facility], survival specialist
Procedures:
1. Surgical aortic valve replacement (25mm Medtronic Avalus Biological Valve)
2. Coronary artery bypass grafting x 3
Primary Diagnosis:
1. Aortic valve stenosis, bicuspid with multivessel coronary artery disease involving the LAD
Secondary Diagnoses:
1.� Bicuspid aortic valve with severe aortic valve stenosis
2.� Multivessel coronary artery disease
3.� Hypertension
4.� Hyperlipidemia
5.� History of bladder cancer
5.� Arthritis
6.� Family history of coronary artery disease
7. Post operative hyperglycemia
HPI: �68-year-old male with known severe aortic valve stenosis who underwent left heart cath and is found to have multivessel coronary disease involving the proximal LAD and left main.� He is also experiencing more symptoms in that class I
indication for both aortic valve replacement and coronary bypass grafting.
Hospital course: Patient was electively admitted for a aortic valve replacement and coronary artery bypass grafting. He recieved no intra-op blood products and was transferred to the CVICU for post-operative management. He arrived to the CVICU on
levophed, precedex, and insulin. He received 4 bottles of albumin post off and was extubated. He was given his post-op ASA once he was stable to take orals. Levophed infusion was titrate off and overnight was started on cardene for blood pressure
control. On 12/21, post op day 1 he was started on beta blockers and cardene infusion was weaned off. His swan bianka catheter and arterial line was removed along with his orantes catheter. He was started on plavix and weaned 2lNC to room air. On 12/22,
post op day #2, he converted from SR to afib with RVR, He was given multiple doses of IV beta blockers and amio bolus and infusion. He converted back to sinus bradycardia 7 hours later. His chest tubes were removed and was given IV lasix. Patient
was continued on an insulin infusion due to higher requirements. On 2/4, Post op day #3, cordis was removed, amio was converted to PO and patient remain in sinus. on 25, post operative day #4 patient remains in sinus rhythm and went for his two
view chest x-ray which was stable. So he will be discharged on asa, plavix, low dose beta krish, and amiodarone. All other discharge instructions were reviewed with the patient and prescriptions were sent to his preferred pharmacy.
Home medication changes:
Started:
Acetaminophen 650 mg every 6 hours as needed for mild pain
Amiodarone 200 mg twice a day for 30 days and then decrease to 200 daily for heart rate control
Clopidogrel 75 mg p.o. daily for graft patency
Cyclobenzaprine 10 mg nightly as needed for muscle spasms
Metoprolol succinate 12.5 mg twice a day for blood pressure and heart rate control
Pantoprazole 40 mg p.o. daily for GI protection while on Plavix
Stopped:
Amlodipine 10 mg p.o. nightly was discontinued due to being started on other antihypertensives
Nitroglycerin sublingual tablets were discontinued due to revascularization
Vitamin K2 100 mcg was discontinued; Do not restart until a discussion with your doctor.
Discharge Plan
-
Patient Disposition: Home (Routine Discharge)
Discharge Diagnosis/Procedures: AVR/CABG
Condition: Fair
Diet: Low Fat and Low Sodium
Activity: As tolerated
Driving Restrictions: Not until seen by your Dr
Bathing Restrictions: OK to Shower
Other Services: Cardiac Rehab
Specialty Instructions: Weigh Daily- Call MD for wt gain/loss 3 lbs overnight/5 lbs in 1 week
Stop these medications:: amlodipine
nitroglycerin
vitamin K
Activity Restrictions/Additional Instructions:
ACTIVITY:
-No strenuous activity: no heavy lifting, pushing, pulling anything over 15 pounds for one month
-continue to use stairs as tolerated
DRIVING RESTRICTIONS:
-No driving for one month or until approved by your surgeon
WOUND CARE:
-Shower daily. Use soap & water.
-No lotions, creams or powders on incision area.
DIET:
-continue a low fat/low cholesterol diet.
-IF you are diabetic, continue carb controlled diet.
CARDIAC REHAB:
-Please make appointment to start in 5-6 weeks with your local hospital program. (See Cardiac Rehabilitation Discharge Booklet).
SPECIALTY INSTRUCTIONS:
-Weigh yourself daily. Call your physician for any weight gain/loss of 3 lbs overnight or 5 lbs in one week.
-REPORT any clicking noise or uneven appearance of your sternum to your surgeon immediately.
-If you smoke, you are instructed to quit. The [facility] smoking hotline phone number is [phone]
Instructions: Atrial Fibrillation (DC), Arrhythmias (DC)
Referrals:
CT Transitional Care Nurse [Outside] (The Cardiothoracic Transitional Care Nurse will call you to set up a visit in 1-2 days.)
Erasto Esposito, [Family Provider] -
Toi De La O MD [Active] - 01/28/24 11:00 am
Lázaro Lou MD [Active] - (New patient: pulmonary fibrosis, s/p CABG. See in 3-4 wks post d/c. He mainly lives in [place] but here he lives with his son. Never seen by pulmonology, former smoker)
Juliocesar Lam MD [Active] - 01/24/24 2:00 pm
Prescriptions:
New
pantoprazole 40 mg Tablet,Delayed Release (Dr/Ec)
40 mg PO DAILY Qty: 30 0RF
cyclobenzaprine 10 mg Tablet
10 mg PO HS PRN (Reason: muscle spasm) Qty: 30 0RF
acetaminophen 325 mg Tablet
650 mg PO Q6HPRN PRN (Reason: mild pain,headache,temp >101F ) Qty: 0 0RF
amiodarone [Pacerone] 200 mg Tablet
200 mg PO BID Qty: 60 0RF
clopidogrel 75 mg Tablet
75 mg PO DAILY Qty: 30 0RF
metoprolol succinate 25 mg Tablet Extended Release 24 Hr
12.5 mg PO BID Qty: 90 0RF
amiodarone 200 mg tablet
200 mg PO DAILY Qty: 60 0RF
Rx Instructions:
start 30 days after discharge
Continued
aspirin 81 mg Tablet,Delayed Release (Dr/Ec)
81 mg PO DAILY
magnesium 200 mg Tablet
400 mg PO DAILY
ezetimibe 10 mg Tablet
10 mg PO QPM
rosuvastatin 40 mg Tablet
40 mg PO QPM
cholecalciferol (vitamin D3) [Vitamin D3] 50 mcg (2,000 unit) Tablet
50 mcg PO DAILY
vitamin G50-nkgll acid 2,500-400 mcg Tablet,Disintegrating
1 tab PO DAILY
Discontinued
amlodipine 10 mg Tablet
10 mg PO QPM
vitamin K2 100 mcg Capsule
100 mcg PO DAILY
nitroglycerin [nitroglycerin] 0.4 mg tablet, sublingual
0.4 mg sublingual [id number] PRN (Reason: chest pain) Qty: 25 5RF
Care Plan Goals
Care Plan Goals:
Problem: Readiness for enhanced knowledge related to diagnosis and treatment plan
Goal: Understand your diagnosis and treatment plan needs, including medications if applicable.
Instructions: Know your diagnosis, underlying causes and treatment plan options, including medications if applicable. Consult with your health care team to learn about your diagnosis and treatment plan, including medications if applicable.
--- NOTE | 2023-12-24 09:30 | CM ---
Reviewed chart. Met with Mr. Persaud to review discharge plans. He states he is feeling well and maybe able to go home soon. He states prior to admission he resides with his spouse in the basement of his son's home. He states he has three steps
to enter his in-law suite. He is independent ambulating in the room. We reviewed a home visit by the Cardiothoracic Transitional Care Nurse He is agreeable to a home visit. He states his spouse will be home to assist in his care if needed.
Medical work-up in progress. The discharge plan is to return home with his spouse and a home visit by the Cardiothoracic Transitional Care Nurse when medically stable.
--- NOTE | 2023-12-24 10:30 | PTCARENOTE ---
Epicardial v-wire cut with 2 RNs. Pt tolerated.
--- NOTE | 2023-12-24 11:00 | PTCARENOTE ---
Pt showered. Tolerated.
--- NOTE | 2023-12-24 11:45 | PTCARENOTE ---
Discharge order written. Pt's at bedside. PIVs d/c. Discharge instructions reviewed. all questions answered. Pt stable. Pt wheeled out for discharge.
== END 2023-12-24 12:10 | disposition home or self-care (01) | DRG 220 ==
LOC: CVICU 05:01
PROVIDERS: Anesthesiology; Physician Assistant Medical; Physician Assistant Surgical; ADMITTING PHYSICIAN Thoracic Surgery (Cardiothoracic Vascular Surgery); FAMILY PHYSICIAN Family Medicine; OTHER PHYSICIAN Internal Medicine Pulmonary Disease
PROC: 06BP4ZZ Excision of Right Saphenous Vein, Percutaneous Endoscopic Approach (ICD-10-PCS; 2023-12-20)
PROC: B24BZZ4 Ultrasonography of Heart with Aorta, Transesophageal (ICD-10-PCS; 2023-12-20)
PROC: 02RF08Z Replacement of Aortic Valve with Zooplastic Tissue, Open Approach (ICD-10-PCS; 2023-12-20)
PROC: 021109W Bypass Coronary Artery, Two Arteries from Aorta with Autologous Venous Tissue, Open Approach (ICD-10-PCS; 2023-12-20)
PROC: 02100Z9 Bypass Coronary Artery, One Artery from Left Internal Mammary, Open Approach (ICD-10-PCS; 2023-12-20)
PROC: 5A1221Z Performance of Cardiac Output, Continuous (ICD-10-PCS; 2023-12-20)
DX: I35.0 Nonrheumatic aortic (valve) stenosis (principal); D62 Acute posthemorrhagic anemia; J98.11 Atelectasis; J90 Pleural effusion, not elsewhere classified; E87.1 Hypo-osmolality and hyponatremia; I48.0 Paroxysmal atrial fibrillation; D69.59 Other secondary thrombocytopenia; E86.1 Hypovolemia; E87.70 Fluid overload, unspecified; I25.10 Atherosclerotic heart disease of native coronary artery without angina pectoris; R73.03 Prediabetes; I10 Essential (primary) hypertension; E78.5 Hyperlipidemia, unspecified; I65.21 Occlusion and stenosis of right carotid artery; R00.1 Bradycardia, unspecified; M19.90 Unspecified osteoarthritis, unspecified site; Z85.51 Personal history of malignant neoplasm of bladder; Z87.891 Personal history of nicotine dependence; Z79.82 Long term (current) use of aspirin; Z82.49 Family history of ischemic heart disease and other diseases of the circulatory system
CPT/HCPCS: 88305; 88311; 36415; 71045; 71046; 80048; 80053; 81003; 82248; 82330; 82565; 82805; 82947; 82962; 83036; 83735; 84132; 84302; 84520; 85014; 85018; 85025; 85027; 85049; 85610; 85730; 86850; 86900; 86901; 86920; 87070; 93005; 93312; 93320; 93325; 94002; J2916; P9045

== ENCOUNTER → 2024-01-28 08:19 | Outpatient (REF) | payer MEDICARE, OTHER, SELFPAY | LOC: DHSLP 08:19 | PROVIDERS: ATTENDING PHYSICIAN Internal Medicine Critical Care Medicine; FAMILY PHYSICIAN Family Medicine | DX: G47.33 Obstructive sleep apnea (adult) (pediatric) (principal) | CPT/HCPCS: 95800 ==